=== PATIENT | female | born 1995 | race Caucasian/White ===

== ENCOUNTER 2016-03-12 15:12 | Emergency (ER) | payer OTHER ==
[2016-03-12] MEDS ORDERED: Ondansetron INJ* 2 MG/ML VIAL IV ONE (15:54)
[2016-03-12] MEDS ORDERED: NS 0.9% 1000 ML* 2,000 ML IV ONE (15:54)
[2016-03-12] MEDS ORDERED: Morphine INJ* 4 MG/ML 1 ML CARPUJECT IV ONE (16:11)
[2016-03-12 16:17] LABS: Hematocrit 40 % (35-47); Hemoglobin 13.9 g/dl (12.0-16.0); Mean Corpuscular HGB Conc 35 g/dl (31-36); Mean Corpuscular Hemoglobin 33 pg (27-31); Mean Corpuscular Volume 97 fL (80-97); Mean Platelet Volume 9 um3 (7.4-10.4); Red Blood Count 4.14 10^6/ul (4.0-5.4); Red Cell Distribution Width 12 % (10.5-15); White Blood Count 17.8 10^3/ul (3.5-10.8)
[2016-03-12 16:33] LABS: ALT 11 U/L (7-52); AST 17 U/L (13-39); Albumin 4.8 g/dL (3.2-5.2); Alkaline Phosphatase 50 U/L (34-104); Anion Gap 8 mmol/L (2-11); BUN/Creatinine Ratio 14.9 (8-20); Blood Urea Nitrogen 11 mg/dL (6-24); CO2 Carbon Dioxide 25 mmol/L (22-32); Calcium 9.9 mg/dL (8.6-10.3); Chloride 103 mmol/L (101-111); EGFR African American 125.1 (>60); EGFR Non-African American 97.3 (>60); Globulin 2.8 g/dL (2-4); Glucose 130 mg/dL (70-100); Lipase < 10 U/L (11.0-82.0); Potassium 3.4 mmol/L (3.5-5.0); Sodium 136 mmol/L (133-145); Total Protein 7.6 g/dL (6.4-8.9)
--- NOTE | 2016-03-12 17:33 | RAD ---
Indication: Bilateral flank pain. Real-time sonography of the kidneys was performed. The right kidney measures 10.8 x 5.2 x 5.3 cm with no hydronephrosis. The left kidney measures 12.0 x 5.2 x 5.3 cm with moderate degree of left hydronephrosis. Echogenic foci are noted in the calyces which may represent nonobstructing calculi. There is an echogenic focus which appears to be within the distal left ureter which may represent a 5 mm calculi. Bilateral ureteral jets are noted. IMPRESSION: Moderate degree of left hydronephrosis with echogenic foci in the region of the distal left ureter. Right kidney is unremarkable. Bilateral ureteral jets are noted.
[2016-03-12 18:07] LABS: Urine Bacteria 1+ (Absent); Urine Bilirubin Negative (Negative); Urine Glucose Negative (Negative); Urine Nitrite Negative (Negative)
[2016-03-12] MEDS ORDERED: Ketorolac INJ* 30 MG/ML 1 ML VIAL IV PUSH ONE (18:12)
[2016-03-12] MEDS ORDERED: Sulfamethox/Trimethoprim DS 800/160* TAB PO ONE (18:13)
[2016-03-12] MEDS ORDERED: oxyCODONE/Acetamin 5/325 MG* TAB PO ONE (18:20)
[2016-03-12 19:08] VITALS: BP 100/53
--- NOTE | 2016-03-12 22:47 | ED ---
IRupreto,Charity, scribed for Bryant Barkley MD on 03/12/16 at 1632 . GI/ HPI - HPI Summary HPI Summary: This 21 y/o female presents to ED for acute back pain that radiates to right suprapubic abd since 1 hour ago. Pt is actively n/v at the time of initial evaluation. Mother present at bedside reports subjective fever. Temperature of PMHx includes IBS, PCOS, and kidney stones. Mother present at bedside and pt deny any PSHx, stent, or scope for her kidney stone. Pt states that her LMP was " a few weeks late" but denies any chance of being . - History of Current Complaint Chief Complaint: EDAbdPain Time Seen by Provider: 03/12/16 15:53 Stated Complaint: VOITTING Hx Obtained From: Patient, Family/Rail Grinder - mother present at bedside, Medical Records Onset/Duration: Started Hours Ago, Atraumatic, Still Present Timing: Constant Severity: Moderate Current Severity: Moderate Pain Intensity: 6 Location of Pain: Suprapubic Pain Radiates to: Back Associated Signs and Symptoms: Positive: Back Pain, Nausea, Vomiting, Fever - subjective fever Aggravating Factor(s): Nothing Alleviating Factor(s): Nothing - Allergy/Home Medications Allergies/Adverse Reactions: Allergies Allergy/AdvReac Type Severity Reaction Status Date / Time Cefprozil Allergy Rash Verified 03/12/16 15:16 PMH/Surg Hx/FS Hx/Imm Hx Endocrine/Hematology History: Denies: Hx Diabetes, Hx Thyroid Disease Cardiovascular History: Denies: Hx Hypertension, Hx Peripheral Vascular Disease Respiratory History: Reports: Hx Asthma - as a child, no inhalers at present Denies: Hx Chronic Obstructive Pulmonary Disease (COPD) GI History: Denies: Hx Ulcer Musculoskeletal History: Denies: Hx Arthritis, Hx Rheumatoid Arthritis, Hx Osteoporosis Sensory History: Denies: Hx Cataracts, Hx Contacts or Glasses, Hx Glaucoma Opthamlomology History: Denies: Hx Cataracts, Hx Contacts or Glasses, Hx Glaucoma Neurological History: Denies: Hx Headaches, Hx Seizures, Hx Transient Ischemic Attacks (TIA) Psychiatric History: Denies: Hx Anxiety, Hx Depression - Surgical History Surgery Procedure, Year, and Place: Tonsillectomy middle school age. [place] teeth removal 2009 Infectious Disease History: Denies: Hx Clostridium Difficile, Hx Hepatitis, Hx Human Immunodeficiency Virus (HIV), Hx of Known/Suspected MRSA, Hx Shingles, Hx Tuberculosis, Hx Known/ Suspected VRE, Traveled Outside the [place] in Last 30 Days - Family History Known Family History: Positive: Hypertension - Social History Lives: With Family Alcohol Use: Rare Hx Substance Use: Yes Substance Use Type: Reports: Marijuana Substance Use Comment - Amount & Last Used: Frequently - every day Hx Tobacco Use: No Smoking Status (MU): Never Smoked Tobacco Review of Systems Positive: Fever - subjective fever Negative: Chest Pain Negative: Shortness Of Breath, Cough Positive: Abdominal Pain, Vomiting, Nausea Negative: dysuria Positive: Other - back pain Negative: Rash Neurological: Other - negative for dizziness Negative: Anxious, Depressed All Other Systems Reviewed And Are Negative: Yes Physical Exam - Summary Physical Exam Summary: Constitutional: Well-developed, Well-nourished, Alert. (-) Distressed Skin: Warm, Dry HENT: Normocephalic; Atraumatic Eyes: Conjunctiva normal Neck: Musculoskeletal ROM normal neck. (-) JVD, (-) Stridor, (-) Tracheal deviation Cardio: Rhythm regular, rate normal, Heart sounds normal; Intact distal pulses; The pedal pulses are 2+ and symmetric. Radial pulses are 2+ and symmetric. (-) Murmur Pulmonary/Chest wall: Effort normal. (-) Respiratory distress, (-) Wheezes, (-) Rales Abd: Soft, (-) Tenderness, (-) Distension, (-) Guarding, (-) Rebound, (+) left CVA tenderness. Musculoskeletal: (-) Edema Lymph: (-) Cervical adenopathy Neuro: Alert, Oriented x3 Psych: Mood and affect Normal Triage Information Reviewed: Yes Vital Signs On Initial Exam: Initial Vitals Temp Pulse Resp BP Pulse Ox 97.6 F 80 17 138/69 100 03/12/16 15:14 03/12/16 15:14 03/12/16 15:14 03/12/16 15:14 03/12/16 15:14 Vital Signs Reviewed: Yes Diagnostics - Vital Signs Vital Signs Temp Pulse Resp BP Pulse Ox 03/12/16 15:14 97.6 F 80 17 138/69 100 - Laboratory Lab Results: Lab Results 03/12/16 Range/Units 16:00 WBC 17.8 H (3.5-10.8) 10^3/ul RBC 4.14 (4.0-5.4) 10^6/ul Hgb 13.9 (12.0-16.0) g/dl Hct 40 (35-47) % MCV 97 (80-97) fL MCH 33 H (27-31) pg MCHC 35 (31-36) g/dl RDW 12 (10.5-15) % Plt Count 191 (150-450) 10^3/ul MPV 9 (7.4-10.4) um3 Neut % (Auto) 82.4 (38-83) % Lymph % (Auto) 10.8 L (25-47) % [place] % (Auto) 6.1 (1-9) % Eos % (Auto) 0.5 (0-6) % Baso % (Auto) 0.2 (0-2) % Absolute Neuts (auto) 14.6 H (1.5-7.7) 10^3/ul Absolute Lymphs (auto) 1.9 (1.0-4.8) 10^3/ul Absolute Monos (auto) 1.1 H (0-0.8) 10^3/ul Absolute Eos (auto) 0.1 (0-0.6) 10^3/ul Absolute Basos (auto) 0 (0-0.2) 10^3/ul Absolute Nucleated RBC 0 10^3/ul Nucleated RBC % 0 Result Diagrams: 03/12/16 16:00 03/12/16 16:00 Lab Statement: Any lab studies that have been ordered have been reviewed, and results considered in the medical decision making process. - Additional Comments Diagnostic Additional Comments: US Renal -- Moderate degree of left hydronephrosis with echogenic foci in the region of the distal left ureter. Right kidney is unremarkable. Bilateral ureteral jets are noted. Re-Evaluation - Re-Evaluation First Eval Re-Evaluation Time: 18:20 Change: Improved Comment: Pt's pain resolved after morphine and oxycodone. Due to lack of urologist aeronautics commission director today, Pt will be discharged with plan to follow up with Dr. Stafford/Jet's office tomorrow as an outpatient. GIGU Course/Dx - Course Assessment/Plan: This 21 y/o female presents to ED with chief complaint of acute lower back pain radiating to abd pain since an hour ago. Pt is noted with active n/v at time of initial evaluation. PMHx includes recent kidney stone, PCOS, and IBS. Mother present at bedside denies any PSHx for either of Pt's IBS or kidney stones. Upon examination, Pt is noted with left CVA tendnerness. Blood work indicates elevated WBC of 17.8. Lipase is negative. US Renal indicates left hydronephrosis with echogenic foci in region of left distal ureter. UA indicates 3+ RBC. - Diagnoses Provider Diagnoses: Ureteral stone with hydronephrosis Discharge - Discharge Plan Condition: Stable Disposition: HOME Patient Education Materials: Kidney Stones (ED), Hydronephrosis (ED) Referrals: Akbar Rodrigues MD [Primary Care Provider] - 2 Days Navi Stafford MD [Medical Doctor] - 1 Day The documentation as recorded by the Ruperto greenwood Soohyun accurately reflects the service I personally performed and the decisions made by , Bryant Barkley MD.
== END 2016-03-12 19:07 | disposition home or self-care (01) ==
LOC: ED 15:12
DX: N13.2 Hydronephrosis with renal and ureteral calculous obstruction (principal); Z87.442 Personal history of urinary calculi
CPT/HCPCS: 36415; 76775; 80053; 81003; 81015; 83690; 85025; 87086; 96360; 96374; 96375; 99282; J2270; J2405

== ENCOUNTER 2016-03-13 20:32 | Emergency (ER) | payer OTHER ==
[2016-03-13 21:30] VITALS: BP 121/82
== END 2016-03-13 22:06 | disposition left against medical advice (07) ==
LOC: ED 20:32
DX: R10.84 Generalized abdominal pain (principal); Z53.21 Procedure and treatment not carried out due to patient leaving prior to being seen by health care provider

== ENCOUNTER 2016-03-14 08:13 | Emergency (ER) | payer OTHER ==
[2016-03-14 10:15] VITALS: BP 103/61
== END 2016-03-14 10:25 | disposition left against medical advice (07) ==
LOC: ED 08:13
DX: R10.11 Right upper quadrant pain (principal)
CPT/HCPCS: 99282

== ENCOUNTER 2017-01-30 11:30 | Emergency (ER) | payer OTHER ==
[2017-01-30] MEDS ORDERED: Ondansetron ODT TAB* 4 MG PO ONE (14:50)
[2017-01-30] MEDS ORDERED: Ondansetron INJ* 2 MG/ML VIAL IV ONE (15:38)
[2017-01-30] MEDS ORDERED: NS 0.9% 1000 ML* 1,000 ML IV ONE (15:38)
[2017-01-30 16:15] LABS: Hematocrit 38 % (35-47); Hemoglobin 13.4 g/dl (12.0-16.0); Mean Corpuscular HGB Conc 35 g/dl (31-36); Mean Corpuscular Hemoglobin 34 pg (27-31); Mean Corpuscular Volume 98 fL (80-97); Mean Platelet Volume 8 um3 (7.4-10.4); Red Blood Count 3.92 10^6/ul (4.0-5.4); Red Cell Distribution Width 13 % (10.5-15); White Blood Count 8.8 10^3/ul (3.5-10.8)
[2017-01-30 16:30] LABS: Albumin 4.7 g/dL (3.2-5.2); Calcium 9.9 mg/dL (8.6-10.3); EGFR African American 159.3 (>60); EGFR Non-African American 123.9 (>60); Potassium 3.5 mmol/L (3.5-5.0); Total Bilirubin 0.4 mg/dL (0.2-1.0); Total Protein 7.7 g/dL (6.4-8.9)
[2017-01-30 17:00] LABS: Urine Bilirubin Negative (Negative); Urine Glucose Negative (Negative); Urine Nitrite Negative (Negative)
[2017-01-30 18:07] VITALS: BP 105/63
--- NOTE | 2017-01-30 19:23 | ED ---
Enid Burch Julia, scribed for Aj Schmitz MD on 01/30/17 at 1701 . Complex/Multi-Sys Presentation - HPI Summary HPI Summary: Patient is a 21 year old female presenting to [facility] with a chief complaint of N/ V for the past 10 days. Patient states she cant keep anything down. Patient is roughly 7 weeks . She has not seen an OGBYN, but has an appointment in February. Patient reports the pain is alleviated by nothing and aggravated by stress. Patient reports lightheadedness, infrequent urination, loss of appetite , increased stress, and uterine pain that has worsened over time. Patient denies vaginal bleeding. Patients reproductive history is A0. - History Of Current Complaint Chief Complaint: EDNauseaVomitDiarrh Time Seen by Provider: 01/30/17 15:29 Hx Obtained From: Patient Onset/Duration: Lasting Weeks - 10 days Aggravating Factor(s): Stress Alleviating Factor(s): nothing Associated Signs And Symptoms: Positive: Other - lightheadedness, infrequent urination, loss of appetite, increased stress, and uterine pain that has worsened over time. Patient denies vaginal bleeding. - Allergies/Home Medications Allergies/Adverse Reactions: Allergies Allergy/AdvReac Type Severity Reaction Status Date / Time Acetaminophen [From Percocet] Allergy Nausea And Verified 03/14/16 08:25 Vomiting Cefprozil Allergy Rash Verified 03/14/16 08:24 Oxycodone [From Percocet] Allergy Nausea And Verified 03/14/16 08:25 Vomiting PMH/Surg Hx/FS Hx/Imm Hx Endocrine/Hematology History: Denies: Hx Diabetes, Hx Thyroid Disease Cardiovascular History: Denies: Hx Hypertension, Hx Peripheral Vascular Disease Respiratory History: Reports: Hx Asthma - as a child, no inhalers at present Denies: Hx Chronic Obstructive Pulmonary Disease (COPD) GI History: Denies: Hx Ulcer History: Reports: Hx Kidney Stones Musculoskeletal History: Denies: Hx Arthritis, Hx Rheumatoid Arthritis, Hx Osteoporosis Sensory History: Denies: Hx Cataracts, Hx Contacts or Glasses, Hx Glaucoma Opthamlomology History: Denies: Hx Cataracts, Hx Contacts or Glasses, Hx Glaucoma Neurological History: Denies: Hx Headaches, Hx Seizures, Hx Transient Ischemic Attacks (TIA) Psychiatric History: Denies: Hx Anxiety, Hx Depression - Surgical History Surgery Procedure, Year, and Place: Tonsillectomy middle school age. [place] teeth removal 2009 Infectious Disease History: No Infectious Disease History: Denies: Hx Clostridium Difficile, Hx Hepatitis, Hx Human Immunodeficiency Virus (HIV), Hx of Known/Suspected MRSA, Hx Shingles, Hx Tuberculosis, Hx Known/ Suspected VRE, Traveled Outside the [place] in Last 30 Days - Family History Known Family History: Positive: Unknown - Patient is adopted. - Social History Alcohol Use: None Hx Substance Use: Yes Substance Use Type: Reports: Marijuana Substance Use Comment - Amount & Last Used: hx of use Hx Tobacco Use: No Smoking Status (MU): Never Smoked Tobacco Review of Systems Positive: Other - lightheaded. Negative: Fever Positive: Vomiting, Nausea, Other - loss of appetite Positive: frequency - decreased, pain - uterine Positive: Other - stressed All Other Systems Reviewed And Are Negative: Yes Physical Exam - Summary Physical Exam Summary: Appearance: The patient is well-nourished in no acute distress and in no acute pain. Skin: The skin is warm and dry and skin color reflects adequate perfusion. HEENT: The head is normocephalic and atraumatic. The pupils are equal and reactive. The conjunctivae are clear and without drainage. Nares are patent and without drainage. Mouth reveals moist mucous membranes and the throat is without erythema and exudate. The external ears are intact. The ear canals are patent and without drainage. The tympanic membranes are intact. Neck: the neck is supple with full range of motion and non-tender. There are no carotid bruits. There is no neck vein distension. Respiratory: Chest is non-tender. Lungs are clear to auscultation and breath sounds are symmetrical and equal. Cardiovascular: Heart is regular rate and rhythm. There is no murmur or rub auscultated. There is no peripheral edema and pulses are symmetrical and equal. Abdomen: The abdomen is soft and non-tender. There are normal bowel sounds heard in all four quadrants and there is no organomegaly palpated. Musculoskeletal: There is no back tenderness noted. Extremities are non-tender with full range of motion. There is good capillary refill. There is no peripheral edema or calf tenderness elicited. Neurological: Patient is alert and oriented to person, place and time. The patient has symmetrical motor strength in all four extremities. Cranial nerves are grossly intact. Deep tendon reflexes are symmetrical and equal in all four extremities. Psychiatric: The patient has an appropriate affect and does not exhibit any anxiety or depression. Triage Information Reviewed: Yes Vital Signs On Initial Exam: Initial Vitals Temp Pulse Resp BP Pulse Ox 97.9 F 64 18 109/73 100 01/30/17 12:03 01/30/17 12:03 01/30/17 12:03 01/30/17 12:03 01/30/17 12:03 Vital Signs Reviewed: Yes - [place] Coma Scale Coma Scale Total: 15 Diagnostics - Vital Signs Vital Signs Temp Pulse Resp BP Pulse Ox 01/30/17 16:32 79 98 01/30/17 16:31 122/63 01/30/17 12:03 97.9 F 64 18 109/73 100 - Laboratory Lab Results: Lab Results 01/30/17 01/30/17 Range/Units 15:59 15:59 WBC 8.8 (3.5-10.8) 10^3/ul RBC 3.92 L (4.0-5.4) 10^6/ul Hgb 13.4 (12.0-16.0) g/dl Hct 38 (35-47) % MCV 98 H (80-97) fL MCH 34 H (27-31) pg MCHC 35 (31-36) g/dl RDW 13 (10.5-15) % Plt Count 202 (150-450) 10^3/ul MPV 8 (7.4-10.4) um3 Sodium 135 (133-145) mmol/L Potassium 3.5 (3.5-5.0) mmol/L Chloride 101 (101-111) mmol/L Carbon Dioxide 27 (22-32) mmol/L Anion Gap 7 (2-11) mmol/L BUN 9 (6-24) mg/dL Creatinine 0.60 (0.51-0.95) mg/dL Est GFR ( Amer) 159.3 (>60) Est GFR (Non-Af Amer) 123.9 (>60) BUN/Creatinine Ratio 15.0 (8-20) Glucose 81 (70-100) mg/dL Calcium 9.9 (8.6-10.3) mg/dL Total Bilirubin 0.40 (0.2-1.0) mg/dL AST 14 (13-39) U/L ALT 9 (7-52) U/L Alkaline Phosphatase 50 (34-104) U/L Total Protein 7.7 (6.4-8.9) g/dL Albumin 4.7 (3.2-5.2) g/dL Globulin 3.0 (2-4) g/dL Albumin/Globulin Ratio 1.6 (1-3) Result Diagrams: 01/30/17 15:59 01/30/17 15:59 Lab Statement: Any lab studies that have been ordered have been reviewed, and results considered in the medical decision making process. Complex Multi-Symp Course/Dx Course Of Treatment: Ms. Maggie Miramontes is early in her first and has been vomiting and not keeping anything down. She called he OB whom she has not seen yet and was given Reglan but isn't keeping it down either. Her labs here were normal and she felt better after fluids and zofran. I gave her wome education about dietary and environmental steps she could take and a prescription for Deglas. - Diagnoses Provider Diagnoses: Nausea and vomiting during Discharge - Discharge Plan Condition: Stable Disposition: HOME Prescriptions: Doxylamine/Pyridoxine(NF) [Diclegis (NF)] 1 tab PO BEDTIME #10 tab Patient Education Materials: Nausea and Vomiting in (ED) Referrals: Miguel Tripathi MD [Primary Care Provider] - 3 Days Additional Instructions: RETURN TO THE EMERGENCY DEPT FOR ANY CHANGING OR WORSENING SYMPTOMS. The documentation as recorded by the Enid greenwood Julia accurately reflects the service I personally performed and the decisions made by me, Aj Schmitz MD.
== END 2017-01-30 18:06 | disposition home or self-care (01) ==
LOC: ED 11:30
DX: O21.0 Mild hyperemesis gravidarum (principal); Z3A.01 Less than 8 weeks gestation of pregnancy; J45.909 Unspecified asthma, uncomplicated; Z87.442 Personal history of urinary calculi; Z88.6 Allergy status to analgesic agent; Z88.1 Allergy status to other antibiotic agents; Z88.5 Allergy status to narcotic agent
CPT/HCPCS: 36415; 80053; 81003; 85027; 96361; 96374; 99282; J2405

== ENCOUNTER → 2017-07-25 14:28 | Emergency (ER) | payer OTHER ==
[2017-07-25 16:05] VITALS: BP 129/87
--- NOTE | 2017-07-25 19:19 | ED ---
Ronaldo Burch Tenzin, scribed for Chong Yoon MD on 07/25/17 at 1554 . - HPI Summary HPI Summary: Pt is a 22 years old female 33 weeks long presenting to the ED complaining of lower abdominal pain radiating to all around lower back that started since this morning. She reports that she had ten episodes of pain today. She is also complaining of increased vaginal discharge with thicker texture. She denies fever, chills, dysuria or SOB. No aggravating or alleviating factors were noted. GOP1 - History of Current Complaint Chief Complaint: EDOBProblems Stated Complaint: BACK/ABD PAIN/33 WKS PREG Time Seen by Provider: 07/25/17 15:34 Hx Obtained From: Patient Current Severity: Mild Pain Intensity: 5 Location of Pain: Suprapubic Associated Signs and Symptoms: Positive: Back Pain, Vaginal Bleeding or Discharge - Increased vaginal discharge.. Negative: Fever - Assessment Hx Now: No Hx Hysterectomy: No - Allergies/Home Medications Allergies/Adverse Reactions: Allergies Allergy/AdvReac Type Severity Reaction Status Date / Time acetaminophen [From Percocet] Allergy Nausea And Verified 07/25/17 15:36 Vomiting cefprozil Allergy Rash Verified 07/25/17 15:36 oxycodone [From Percocet] Allergy Nausea And Verified 07/25/17 15:36 Vomiting PMH/Surg Hx/FS Hx/Imm Hx Endocrine/Hematology History: Denies: Hx Diabetes, Hx Thyroid Disease Cardiovascular History: Denies: Hx Hypertension, Hx Peripheral Vascular Disease Respiratory History: Reports: Hx Asthma - as a child, no inhalers at present Denies: Hx Chronic Obstructive Pulmonary Disease (COPD) GI History: Denies: Hx Ulcer History: Reports: Hx Kidney Stones Musculoskeletal History: Denies: Hx Arthritis, Hx Rheumatoid Arthritis, Hx Osteoporosis Sensory History: Denies: Hx Cataracts, Hx Contacts or Glasses, Hx Glaucoma Opthamlomology History: Denies: Hx Cataracts, Hx Contacts or Glasses, Hx Glaucoma Neurological History: Denies: Hx Headaches, Hx Seizures, Hx Transient Ischemic Attacks (TIA) Psychiatric History: Denies: Hx Anxiety, Hx Depression - Surgical History Surgery Procedure, Year, and Place: Tonsillectomy middle school age. [place] teeth removal 2009 Infectious Disease History: No Infectious Disease History: Denies: Hx Clostridium Difficile, Hx Hepatitis, Hx Human Immunodeficiency Virus (HIV), Hx of Known/Suspected MRSA, Hx Shingles, Hx Tuberculosis, Hx Known/ Suspected VRE, Traveled Outside the US in Last 30 Days - Family History Known Family History: Positive: Unknown - Patient is adopted., Hypertension - Social History Alcohol Use: None Hx Substance Use: Yes Substance Use Type: Reports: Marijuana Substance Use Comment - Amount & Last Used: hx of use Hx Tobacco Use: No Smoking Status (MU): Never Smoked Tobacco Review of Systems Negative: Fever, Chills Negative: Shortness Of Breath Positive: Abdominal Pain - suprapubic radiating to her back. Negative: dysuria All Other Systems Reviewed And Are Negative: Yes Physical Exam - Summary Physical Exam Summary: General: well-appearing, no pain distress Skin: warm, color reflects adequate perfusion, dry Head: normal Eyes: EOMI, DREW ENT: normal Neck: supple, nontender Respiratory: CTA, breath sounds present Cardiovascular: RRR Abdomen: soft, nontender Bowel: present Musculoskeletal: normal, strength/ROM intact Neurological: sensory/motor intact, A&O x3 Psychological: affect/mood appropriate GOP1 : 33 weeks long . - Physical Exam Triage Information Reviewed: Yes Vital Signs Reviewed: Yes Diagnostics - Vital Signs Vital Signs Temp Pulse Resp BP Pulse Ox 07/25/17 14:31 98.7 F 68 15 127/83 100 - Laboratory Lab Statement: Any lab studies that have been ordered have been reviewed, and results considered in the medical decision making process. Course/Dx - Course Course Of Treatment: DISCUSSED WITH DR SUTHERLAND, OB. PATIENT ACCEPTED AT [facility] - Diagnoses Provider Diagnoses: Abdominal pain during in third trimester - Provider Notifications Discussed Care Of Patient With: Jaky Sutherland Time Discussed With Above Provider: 15:50 - Pt will be admitted. Discharge - Sign-Out/Discharge Documenting (check all that apply): Discharge/Admit/Transfer - Discharge Plan Condition: Stable Disposition: ADMITTED TO [facility] Referrals: Miguel Tripathi MD [Primary Care Provider] - - Billing Disposition and Condition Condition: STABLE Disposition: Admitted to [facility] The documentation as recorded by the Ronaldo greenwood Tenzin accurately reflects the service I personally performed and the decisions made by me, Chong Yoon MD.
== END | disposition short-term general hospital (02) ==
LOC: ED 14:28
DX: O26.893 Other specified pregnancy related conditions, third trimester (principal); O46.93 Antepartum hemorrhage, unspecified, third trimester; Z3A.33 33 weeks gestation of pregnancy; R10.9 Unspecified abdominal pain; M54.9 Dorsalgia, unspecified
CPT/HCPCS: 99284

== ENCOUNTER 2017-09-13 09:26 | Inpatient (IN) | payer OTHER ==
[2017-09-13] MEDS ORDERED: PROCHLORPERAZINE INJ 5 MG/ML 2 ML VIAL IV PRN (10:26)
[2017-09-13] MEDS ORDERED: OBEPIDURAL* 250 ML EPIDURAL ONE (11:04)
[2017-09-13 11:05] LABS: Hematocrit 43 % (35-47); Hemoglobin 14.9 g/dl (12.0-16.0); Mean Corpuscular HGB Conc 35 g/dl (31-36); Mean Corpuscular Hemoglobin 34 pg (27-31); Mean Corpuscular Volume 99 fL (80-97); Mean Platelet Volume 11.3 um3 (7.4-10.4); Platelet Count 133 10^3/ul (150-450); Red Blood Count 4.37 10^6/ul (4.00-5.40); Red Cell Distribution Width 13 % (10.5-15)
--- NOTE | 2017-09-13 11:12 | HP ---
General Information - General Information Maternal Age: 22 Grav: 1 Para: 0 SAB: 0 IEA: 0 Estimated Due Date: 09/11/17 Determined By: LMP Maternal Blood Type and Rh: A Positive - Results this Serology/RPR Result: Non-Reactive Rubella Result: Immune HBsAg Result: Negative HIV Result: Negative GBS Culture Result: Negative Past Medical History Pertinent Past Medical History: See Records Past Medical History Comment: Depression, stopped meds with Smokes marijuana regularly Past Surgical History Comment: Tonsillectomy [place] Tooth Extraction - Antepartal Records Antepartal Records: Reviewed, Uncomplicated Review of Systems Constitutional: Uncomfortable CV Complaint: No Respiratory: Shortness of Breath: No Gastrointestinal: Vomiting Genitourinary: Leaking Fluid Musculoskeletal: Contractions Neurological: No Headache, No Visual Changes Movement: Normal Exam Allergies/Adverse Reactions: Allergies cefprozil Allergy (Verified 09/13/17 10:54) Rash acetaminophen [From Percocet] Adverse Reaction (Verified 09/13/17 10:54) Nausea And Vomiting oxycodone [From Percocet] Adverse Reaction (Verified 09/13/17 10:54) Nausea And Vomiting Lab Values - Entire Visit: Laboratory Tests 09/13/17 10:40 WBC 11.0 H RBC 4.37 Hgb 14.9 Hct 43 MCV 99 H MCH 34 H MCHC 35 RDW 13 Plt Count 133 L MPV 11.3 H - Measurements Height: 5 ft 6.5 in Weight: 172 lb Weight in lbs: [phone] Body Mass Index (BMI): 27.3 Pre- Weight: 138 lb Weight Gained This : 34 lbs and 0 ozs - Exam Breast: - - soft, no masses Extremities: No Edema Heart: Normal Rhythm/Heart Sounds HEENT: No Significant Findings Lungs: Clear Bilaterally Thyroid: No Thyromegaly - Ultrasound/Biophysical Profile Ultrasound Status: Not Done Targeted Exam Findings Estimated Weight: 7 lbs Cervical Exam: 2cm Effacement: 90% Station: -1 Presenting Part: Vertex Membrane Status: Leaking Amniotic Fluid Evaluation: Clear EFM Findings - External Monitor Findings Baseline Heart Rate: 130 External Monitor Findings: Accelerations Present, No Pattern of Variable or Late Decelerations, Variability Moderate, Baseline Stable External Monitor Findings Comment: category 1 Contractions: Regular, Moderate, 45-90 Seconds Contraction Frequency: every 3-5 min Assessment/Plan - Assessment Primip at 40 wks 2 days with SROM, early labor - Plan Plan: Admit - Anticipate Vaginal Delivery - Date/Time of Admission Date of Admission: 09/13/17 Time of Admission: 09:50
[2017-09-13] MEDS ORDERED: fentaNYL* 50 MCG/ML 2 ML VIAL (100 MCG VIAL) ONE (11:13)
--- NOTE | 2017-09-13 11:14 | PN ---
Progress Note - Progress Note Date of Service: 09/13/17 Note: Now much more uncomfortable, contractions strong, every 2-3 min. Wants epidural Cervix: 3-4 cm/100%/ vtx -[address] Quarles to do epidural
[2017-09-13 11:35] LABS: ABS Basophils 0.1 10^3/ul (0-0.2); ABS Eosinophils 0.1 10^3/ul (0-0.6); ABS Monocytes 1.2 10^3/ul (0-0.8); ABS Neutrophils 7.6 10^3/ul (1.5-7.7); ABS Nucleated RBC 0 10^3/ul; Eosinophil % 0.9 % (0-6); Lymphocyte % 18.6 % (25-47); Nucleated Red Blood Cells % 0.2
[2017-09-13] MEDS ORDERED: Sodium Citrate/Citric Acid* 15 ML UDC PO PRN (11:51)
[2017-09-13] MEDS ORDERED: Phenylephrine IV* 40 MCG/ML 10 ML SYRINGE IV PUSH PRN ×2 (11:51)
[2017-09-13] MEDS ORDERED: Famotidine TAB* 20 MG PO PRN (11:51)
[2017-09-13] MEDS ORDERED: OBEPIDURAL* 250 ML EPIDURAL SCH (12:00)
--- NOTE | 2017-09-13 15:13 | PN ---
Progress Note - Progress Note Date of Service: 09/13/17 Note: Comfortable after epidural FHT, BP stable Cervix: 8-9. vtx -1 Will await full dilation, baby to labor down
[2017-09-13] MEDS ORDERED: Oxytocin in LR* 20 UNITS/1,000 ML BAG IVPB ONE (17:10)
[2017-09-13] MEDS ORDERED: Oxytocin in LR* 20 UNITS/1,000 ML BAG IVPB SCH ×2 (17:30→19:00)
[2017-09-13] MEDS ORDERED: Acetaminophen TAB* 325 MG PO PRN (18:34)
[2017-09-13] MEDS ORDERED: Glycerin ADULT SUPP PR PRN (18:34)
[2017-09-13] MEDS ORDERED: Dibucaine 1% 28.35 GM TUBE PR PRN (18:34)
[2017-09-13] MEDS ORDERED: Ibuprofen TAB* 600 MG PO PRN (18:34)
[2017-09-13] MEDS ORDERED: Witch Hazel PAD* JAR TOPICAL PRN (18:34)
--- NOTE | 2017-09-13 18:42 | PROCNOTE ---
[facility] OB: Delivery Note - Nursery Level of Nursery: Regular/Bedside - Perineum Perineal Injury: Vaginal Laceration Perineal Injury Comment: 1 stitch repair with 3-0 ccg, no local Perineal Repair: By Delivering Practioner - Additional Delivery Notes Additional Delivery Notes: SVB LMC, OA, over small vaginal laceration. Infant pink with stimulation. Placenta Ajay. FF, IV with pitocin running. Laceration with 1 stitch repair, no local. EBL 100cc. Infant with Apgars 9/9.
[2017-09-13] MEDS: Docusate CAP* 100 MG PO SCH (23:59)
[2017-09-14 07:02] LABS: Hematocrit 36 % (35-47); Hemoglobin 12.4 g/dl (12.0-16.0); Mean Corpuscular HGB Conc 35 g/dl (31-36); Mean Corpuscular Hemoglobin 34 pg (27-31); Mean Corpuscular Volume 98 fL (80-97); Mean Platelet Volume 10.5 um3 (7.4-10.4); Platelet Count 109 10^3/ul (150-450); Red Blood Count 3.62 10^6/ul (4.00-5.40); Red Cell Distribution Width 13 % (10.5-15)
[2017-09-14] MEDS: Docusate CAP* 100 MG PO SCH ×2 (07:27→14:31)
[2017-09-14 20:02] VITALS: BP 123/69
[2017-09-15] MEDS: Docusate CAP* 100 MG PO SCH ×2 (01:11→09:32)
[2017-09-15] MEDS: Ferrous Gluconate TAB* 324 MG TAB PO SCH ×2 (01:11→01:12)
== END 2017-09-15 10:19 | disposition home or self-care (01) | DRG 560 ==
LOC: MCHOBOUT 09:26 → MCHOB 09:57
PROVIDERS: ADMIT Midwife; ATTEND Midwife
PROC: 10E0XZZ Delivery of Products of Conception, External Approach (ICD-10-PCS; principal; 2017-09-13)
PROC: 0HQ9XZZ Repair Perineum Skin, External Approach (ICD-10-PCS; 2017-09-13)
DX: O48.0 Post-term pregnancy (principal); O71.4 Obstetric high vaginal laceration alone; O99.324 Drug use complicating childbirth; F32.9 Major depressive disorder, single episode, unspecified; O99.344 Other mental disorders complicating childbirth; F14.90 Cocaine use, unspecified, uncomplicated; Z3A.40 40 weeks gestation of pregnancy; Z37.0 Single live birth
CPT/HCPCS: 36415; 80307; 85025; 85027; 86850; 86900; 86901; 87086; A9270-GY; J0780; J3010

== ENCOUNTER 2018-02-10 14:55 | Emergency (ER) | payer OTHER ==
--- OUTSIDE RECORDS SUMMARY | 2018-02-10 15:00 | XMS REPORT | Continuity of Care Document ---
:1995 External Reference #:[id number] Author Name Kathy Anthony MD Address [address] [place] [address] Care Team Providers Name Role Phone Vanessa Estes MD Primary Care Physician Unavailable Payers Type Date Identification Numbers Payment Provider Subscriber Policy Number: [id number] [facility] Gena Tapia PayID: [id number] [address] [address] [place] [address] Advance Directives Description No Information Available Problems Description No Active Problems Family History Date Family Member(s) Problem(s) Comments First Son A&W Social History Type Date Description Comments Sex Unknown Education Highest level completed, Associates Degree Marital Status Single Lives With Boyfriend Lives With Son Diet Healthy, Well Balanced Pets 1 cat Occupation Day Care Provider [employer] Tobacco Use Start: Unknown Never Smoked Cigarettes ETOH Use Denies alcohol use Recreational Drug Use Uses marijuana daily Tobacco Use Start: Unknown Patient has never smoked Smoking Status Reviewed: 01/22/18 Patient has never smoked Exercise Type/Frequency Exercises sporadically Seat Belt/Car Seat Always uses seat belt Currently Active Patient is currently sexually active Contraceptive Methods Current methods include levonorgestrel IUD STD's No STD History Allergies, Adverse Reactions, Alerts Date Description Reaction Status Severity Comments 02/14/2017 Cephalexin Active 10/16/2013 NKDA Inactive Medications Medication Date Status Form Strength Qnty SIG Indications Ordering Provider No Active 01/22/ Active Unknown Medications 2018 Promethazine 02/07/ Hx Tablets 25mg 30tabs take one Laura HCL 2017 - tablet by Michele, 10/23/ mouth CNM 2018 every 6 hours as needed for nausea Diclegis 12/19/ Hx Tablets DR 10-10mg 60tabs 2 pills by Laura 2017 - mouth at [facility], 02/07/ bedtime CNM 2017 can add 1 by mouth in in the morning and at noon if nausea not better. Reglan 01/26/ Hx Tablets 10mg 30tabs Take one Chayito 2017 - tablet by Era, 01/30/ mouth q 8 LM 2017 hours. Tri-Sprintec 11/10/ Hx Tablets 0.18/0.215 84tabs 1 by mouth Jaky 2014 - /0.25 every day Koko, 06/30/ mg-35 mcg 2015 Ponstel 11/18/ Hx Capsules 250mg 30caps take 1 by Ayaan Franco 2013 - mouth q6 Mehran, 11/02/ hours as Oma 2014 needed cramping Tramadol HCL 00/00/ Hx Unknown 0000 - 2013 Concerta /00/ Hx Unknown - 2014 Ritalin /00/ Hx Unknown 2014 Vicodin /00/ Hx Unknown - 2014 Zofran /00/ Hx Unknown - 2014 Lamotrigine / Hx Tablets 150mg 1 po qd Unknown - 2017 Nexplanon / Hx Implant 68mg Unknown - 2014 Tramadol HCL 00/ Hx Tablets 50mg 1 by mouth Unknown 0000 - every 6 03/ hours as 2018 needed PNV-Dha 00/ Hx Capsules 27-0.6-0.4 1 by mouth Unknown 0000 - -300mg every day 2017 Medications Administered in Office Medication Date Status Form Strength Qnty SIG Indications Ordering Provider PT SCRN Tbco Administered Injection Phaelon Id as Non User 018 MD Gabrielle Immunizations CPT Code Status Date Vaccine Lot # [id number] Given 12/17/2017 Influenza Vaccine Quadrivalent Preser/Antibiotic [id number] Free Im Use [id number] Given 06/19/2017 Tetnus, Diptheria Toxoids And Acellular Pertussis, [id number] PT > 7Yrs Old Vital Signs Date Vital Result Comment 01/22/2018 9:06am BP Systolic 120 mmHg BP Diastolic 68 mmHg Height 66.5 inches 5'6.50" Weight 128.00 lb BMI (Body Mass Index) 20.3 kg/m2 1 Parity 1 12/17/2017 3:16pm BP Systolic 102 mmHg BP Diastolic 68 mmHg Height 66.5 inches 5'6.50" Weight 132.00 lb BMI (Body Mass Index) 21.0 kg/m2 1 Parity 1 10/23/2017 2:36pm BP Systolic 112 mmHg BP Diastolic 66 mmHg Height 66.5 inches 5'6.50" Weight 139.00 lb BMI (Body Mass Index) 22.1 kg/m2 Last Menstrual Period [id number] 1 Parity 1 02/14/2017 9:04am BP Systolic 108 mmHg BP Diastolic 70 mmHg Height 66.5 inches 5'6.50" Weight 133.00 lb BMI (Body Mass Index) 21.1 kg/m2 Last Menstrual Period [id number] 1 Parity 0 08/28/2016 1:54pm BP Systolic 132 mmHg BP Diastolic 70 mmHg Height 66.5 inches 5'6.50" Weight 138.00 lb BMI (Body Mass Index) 21.9 kg/m2 Last Menstrual Period [id number] 0 07/12/2016 11:27am BP Systolic 130 mmHg BP Diastolic 78 mmHg Height 66.5 inches 5'6.50" Weight 138.00 lb BMI (Body Mass Index) 21.9 kg/m2 Last Menstrual Period [id number] 0 07/01/2015 9:41am BP Systolic 106 mmHg BP Diastolic 62 mmHg Height 66.50 inches 5'6.50" Weight 126.00 lb BMI (Body Mass Index) 20.0 kg/m2 Last Menstrual Period [id number] 0 Parity 0 11/10/2014 9:09am BP Systolic 106 mmHg BP Diastolic 58 mmHg Height 66.50 inches 5'6.50" Weight 118.00 lb BMI (Body Mass Index) 18.8 kg/m2 0 Parity 0 11/03/2014 9:59am BP Systolic 90 mmHg BP Diastolic 64 mmHg Height 66.50 inches 5'6.50" Weight 119.00 lb BMI (Body Mass Index) 18.9 kg/m2 Last Menstrual Period [id number] 0 Parity 0 12/17/2013 9:04am BP Systolic 106 mmHg BP Diastolic 70 mmHg Height 66.5 inches 5'6.50" Weight 144.00 lb BMI (Body Mass Index) 22.9 kg/m2 Last Menstrual Period [id number] 11/18/2013 8:23am BP Systolic 102 mmHg BP Diastolic 64 mmHg Height 66.5 inches 5'6.50" Weight 148.00 lb BMI (Body Mass Index) 23.5 kg/m2 Last Menstrual Period [id number] 0 10/24/2013 10:22am BP Systolic 112 mmHg BP Diastolic 76 mmHg Height 66.5 inches 5'6.50" Weight 150.00 lb BMI (Body Mass Index) 23.8 kg/m2 Last Menstrual Period [id number] 0 10/16/2013 11:05am BP Systolic 112 mmHg BP Diastolic 70 mmHg Height 66.5 inches 5'6.50" Weight 149.00 lb BMI (Body Mass Index) 23.7 kg/m2 Last Menstrual Period [id number] 0 Results Test Date Facility Test Result H/L Range Note Urine Culture And 09/24/2017 [facility] Urine Culture SEE RESULT 1 [place] [address] BELOW [phone] Laboratory test 08/13/2017 [facility] Genital For SEE RESULT 2 [place] [address] GRP B Strep BELOW [phone] Only Urinalysis Profile 07/30/2017 [facility] [place] [address] [phone] Urine Appearance Cloudy Urine Specific [place] 1.012 N 1.010-1.030 Urine pH 7.0 N 5-9 Urine Urobilinogen Negative Negative Urine Ketones Negative Negative Urine Protein Negative Negative Urine Leukocytes 1+ Abnormal Negative Urine Blood 2+ Abnormal Negative Urine Nitrite Negative Negative Urine Bilirubin Negative Negative Urine Glucose Negative Negative Urine White Blood Cell 2+(11-20/hpf) Abnormal Absent Urine Red Blood Cell 2+(6-10/hpf) Abnormal Absent Urine Bacteria Absent Absent Urine Squamous Epithelial Cell Present Abnormal Absent Urine Culture And 07/30/2017 [facility] Urine Culture SEE RESULT 3 [place] [address] BELOW [phone] Urinalysis Profile 07/25/2017 [facility] [place] [address] [phone] Urine Appearance Cloudy Urine Specific [place] 1.017 N 1.010-1.030 Urine pH 7.0 N 5-9 Urine Urobilinogen Negative Negative Urine Ketones Trace Abnormal Negative Urine Protein Negative Negative Urine Leukocytes Negative Negative Urine Blood Negative Negative * * Abnormal Negative 4 Urine Nitrite Negative Negative Urine Bilirubin Negative Negative Urine Glucose Negative Negative Laboratory test 06/19/2017 [facility] Glucose 1 HR 89 mg/dL N 70-160 5 [place] [address] Post Prandial [phone] CBC With No Diff 06/19/2017 [facility] White Blood 13.6 High 3.5-10.8 [place] [address] Count 10^3/uL [phone] Red Blood Count 3.72 10^6/uL Low 4.0-5.4 Hemoglobin 12.8 g/dL N 12.0-16.0 Hematocrit 38 % N 35-47 Mean Corpuscular Volume 101 fL High 80-97 Mean Corpuscular Hemoglobin 34 pg High 27-31 Mean Corpuscular HGB Conc 34 g/dL N 31-36 Red Cell Distribution Width 13 % N 10.5-15 Platelet Count 168 10^3/uL N 150-450 Mean Platelet Volume 9.8 um3 N 7.4-10.4 Hemoglobin 06/19/2017 [facility] Hemoglobin A2 2.5 % 2.0-3.3 [place] [address] [phone] Hemoglobin F 0.0 % 0.0-0.9 6 Hemoglobin A 97.5 % 95.8-98.0 Variant Hemoglobin 0.0 % 7 Hemoglobin Electro Interp See Comment 8 Sequential Integreated SCRN 2 WA 04/04/2017 [facility] Interpretation SEE BELOW 9 Risk For Ontd <1:5000 Age Risk Down Syndrome 1:1100 [facility] Down Syndrome Risk <1:5000 <1:270 [facility] Trisomy 18 Risk <1:5000 <1:100 Calculated Gestational Age 16.9 10 Afp,Serum 31.5 ng/mL Afp Mom 0.70 11 HCG,Serum 9.2 IU/mL HCG Mom 0.25 Estriol,Free 1.26 ng/mL Estriol Mom 1.28 Inhibin A,Dimeric 188 pg/mL Inhibin A Mom 1.09 Chato-A 516.7 ng/mL 12 Chato-A Mom 0.82 NT Mom 0.83 13 Referring Physician Name TRICEBER Referring Physician Phone NOT GIVEN Referring Physician Npi NOT GIVEN Specimen # From Part 1 [id number] Date Of 1995 Collection Date 04/04/2017 Maternal Weight 133 lbs Est'd Date Of Delivery 09/12/2017 Nuchal Translucency 1.1 mm [place] Rump Length 56 mm Ultrasound Date 03/01/2017 Nasal Bone NOT GIVEN Mother's Ethnic Origin 14 Insulin Depend Diabetic NO Repeat Specimen NO Number Of Fetuses 1 HX Of Neural Tube Defects NO Cigarette Smoker NOT GIVEN Twin B Nasal Bone NG 15 GC/Chlamydia Dna 03/15/2017 [facility] Chlamydia Negative [place] [address] trachomatis Rna [phone] Neisseria gonorrhoeae (GC) Rna Negative Negative Urine Drug 03/15/2017 [facility] Urine Amphetamine Negative ng/ mL 16 Comp 20 [place] [address] [phone] Urine Barbiturates Negative ng/mL 17 Urine Benzodiazepines Negative ng/mL 18 Urine Cocaine Negative ng/mL 19 Urine Phencyclidine Negative ng/mL Cutoff: 25 Urine Tetrahydrocannabinol Presumptive Posi <SEE NOTE> ng/mL Cutoff: 50 20 Creatinine, Urine 122.3 mg/dL Specific [place] 1.012 pH 7.3 Oxidants Negative 21 Adulterants Comment Normal Codeine, Ur Not Detected ng/mL Cutoff: 25 22 Ztgtjhg-0-njil-glucuronide, Ur Not Detected ng/mL 23 Morphine, Ur Not Detected ng/mL Cutoff: 25 24 Djtmvher-4-xaez-glucuronide, U Not Detected ng/mL 25 6-monoacetylmorphine, Ur Not Detected ng/mL Cutoff: 25 26 Hydrocodone, Ur Not Detected ng/mL Cutoff: 25 27 Norhydrocodone, Ur Not Detected ng/mL Cutoff: 25 28 Dihydrocodeine, Ur Not Detected ng/mL Cutoff: 25 29 Hydromorphone, Ur Not Detected ng/mL Cutoff: 25 30 Hdbenleggrldw4ngckhbtzaulwunn Not Detected ng/mL 31 Oxycodone, Ur Not Detected ng/mL Cutoff: 25 32 Noroxycodone, Ur Not Detected ng/mL Cutoff: 25 33 Oxymorphone, Ur Not Detected ng/mL Cutoff: 25 34 Gehhxjibfqg-2-bvdc-glucuronide Not Detected ng/mL 35 Noroxymorphone, Ur Not Detected ng/mL Cutoff: 25 36 Fentanyl, Ur Not Detected ng/mL Cutoff: 2 37 Norfentanyl, Ur Not Detected ng/mL Cutoff: 2 38 Meperidine, Ur Not Detected ng/mL Cutoff: 25 39 Normeperidine, Ur Not Detected ng/mL Cutoff: 25 40 Naloxone, Ur Not Detected ng/mL Cutoff: 25 41 Bsfsclyp-8-fxkp-glucuronide, U Not Detected ng/mL 42 Methadone, Ur Not Detected ng/mL Cutoff: 25 43 Eddp, Ur Not Detected ng/mL Cutoff: 25 44 Propoxyphene, Ur Not Detected ng/mL Cutoff: 25 45 Norpropoxyphene, Ur Not Detected ng/mL Cutoff: 25 46 Tramadol, Ur Not Detected ng/mL Cutoff: 25 47 O-desmethyltramadol, Ur Not Detected ng/mL Cutoff: 25 48 Tapentadol, Ur Not Detected ng/mL Cutoff: 25 49 N-desmethyltapentadol, Ur Not Detected ng/mL Cutoff: 50 50 Sbizurrwxf-oilh-dtxwxjnudvy, U Not Detected ng/mL 51 Buprenorphine, Ur Not Detected ng/mL Cutoff: 5 52 Norbuprenorphine, Ur Not Detected ng/mL Cutoff: 5 53 Norbuprenorphine glucuronide Not Detected ng/mL Cutoff: 20 54 Opioid Interpretation See Comment 55 THC Confirmation 03/15/2017 [facility] Urine Carboxy >500.0 ng/ mL 56 [place] [address] THC Confirm [phone] Urine THC Interpretation Positive. 57 Laboratory test 03/02/2017 [facility] TSH 0.94 mcIU/mL N 0.34- 5.60 58 [place] [address] [phone] T4 Free 0.69 ng/dL N 0.61-1.12 59 Parvovirus B19 03/02/2017 [facility] Parvovirus Negative Negative Igg [place] [address] (B19) IgG [phone] Antibody Parvovirus (B19) IgM Antibody Negative Negative Parvovirus Interpretation See Comment 60 Lead 03/02/2017 [facility] Lead <1.0 g/dL 0.0-4.9 61 [place] [address] [phone] Submitting Laboratory Phone [phone] 62 HIV 1/2 AB 03/02/2017 [facility] HIV 1 2 Nonreactive Nonreactive 63 [place] [address] Antibody [phone] Type And 03/02/2017 [facility] Patient [place] [address] Blood Type [phone] Antibody Screen NEGATIVE CBC With No 03/02/2017 [facility] White Blood 7.0 10^3/uL N 3.5-10.8 [place] [address] Count [phone] Red Blood Count 3.74 10^6/uL Low 4.0-5.4 Hemoglobin 12.6 g/dL N 12.0-16.0 Hematocrit 37 % N 35-47 Mean Corpuscular Volume 98 fL High 80-97 Mean Corpuscular Hemoglobin 34 pg High 27-31 Mean Corpuscular HGB Conc 35 g/dL N 31-36 Red Cell Distribution Width 12 % N 10.5-15 Platelet Count 193 10^3/uL N 150-450 Mean Platelet Volume 9 um3 N 7.4-10.4 PNL No 03/02/2017 [facility] Rubella Screen Immune IU/ mL Immune 64 [place] [address] [phone] Hemoglobin A1c 4.6 % N 4.0-5.6 65 Hepatitis B Surface Ag Nonreactive Nonreactive 66 Syphillis Igg W/Reflex RPR Nonreactive Nonreactive 67 CF + Sma 03/02/2017 [facility] cystic fibrosis Negative N spinal muscular atrophy Negative N 68 PDF Report SEE IMAGE Sequential Integrated SCRN 1 WA 03/02/2017 [facility] Interpretation SEE BELOW 69 Age Risk Down Syndrome 1:790 [facility] Down Syndrome Risk IN PROCESS <1:50 [facility] Trisomy 18 Risk IN PROCESS <1:100 Calculated Gestational Age 10.6 70 Chato-A 516.7 ng/mL 71 Chato-A Mom 0.82 HCG,Serum 42.2 IU/mL HCG Mom 0.35 NT Mom 0.83 72 Referring Physician Name CAREY 73 Referring Physician 74 Referring Physician Npi [id number] Date Of 1995 76 Collection Date 02/19/2017 77 Maternal Weight 133 lbs 78 Est'd Date Of Delivery 09/12/2017 79 AFSHIN Determined By U 80 Mother's Ethnic Origin 81 Number Of Fetuses 1 82 Insulin Depend Diabetic NO 83 Repeat Specimen NO 84 HX Of Neural Tube Defects NO 85 Prev Down Synd NO 86 Donor Egg NO 87 Donor Age:Egg Retrieval NOT GIVEN 88 Cigarette Smoker NG 89 Ultrasound Date 03/01/2017 90 Supervisor [employer]'s Name MARCELLUS 91 NTQR Supervisor [employer] Equipment Maintenance Id# [id number] NTQR Location Id# [id number] NTQR Reading Phys Id# [id number] FMF Supervisor [employer] Equipment Maintenance Id# NOT GIVEN 95 [place] Rump Length 56 mm 96 Nuchal Translucency 1.1 mm 97 Nasal Bone NOT GIVEN 98 If Twins NOT GIVEN 99 Twin B CRL NG mm 100 Twin B NT NG mm 101 Twin B Nasal Bone NG 102 Laboratory test 02/14/2017 [facility] Cytology SEE RESULT [address] [place] [address] BELOW [phone] Urine Culture And 02/14/2017 [facility] Urine Culture SEE RESULT [address] [place] [address] BELOW [phone] Laboratory test 08/28/2016 [facility] Prolactin 9.0 ng/mL N 1.0- 105 [place] [address] 25.0 [phone] Laboratory test 11/03/2014 [facility] Cytology SEE RESULT [address] [place] [address] BELOW [phone] Laboratory test 10/17/2013 [facility] TSH (Thyroid 0.83 IU/mL N 0.34 [place] [address] Stimulating -5.6 [phone] Horm) 0 Prolactin 14.3 ng/mL N 1.0-25.0 Follicle Stimulating Hormone 5.2 IU/mL N 107 Serum Negative N Negative 108 Luteinizing Hormone 16.2 IU/mL N 109 Insulin Level 16.1 mcIU/mL N 2.6 - 24.9 110 Glucose 87 mg/dL N 70-100 1 SEE RESULT BELOW Name: GENA CONTRERAS : [address]: Stacie Moseley [facility] Acct: [id number] Unit: [id number] AGE: 22 Location: [facility] Re09/24/17 SEX: F Status: REG REF SPEC: [id number] BRETT: 09/24/17-[address]: Stacie BLACK REQ: [id number] RECD: 09/24/17 STATUS: COMP _ SOURCE: URINE SPDESC: ORDERED: Urine Culture COMMENTS: [id number] QUERIES: Urine Source: Random Procedure Result Reported Site Urine Culture Final 09/25/17- 1659 ML No Growth (<1,000 CFU/mL) * - Main Lab . END OF REPORT DEPARTMENT OF PATHOLOGY, [address] [place] [address] Brian Sosa M.D. Director SELINA # [id number] 2 SEE RESULT BELOW Name: DMITRY GENA BELLAMY : [address]: Fe Carey CNM Acct: [id number] Unit: [id number] AGE: 22 Location: [facility] Re08/13/17 SEX: F Status: REG REF SPEC: [id number] BRETT: 08/13/17 [facility] DR: Fe Carey [facility] REQ: [id number] RECD: 08/13/17 STATUS: COMP _ SOURCE: CER/VAG/RE SPDESC: ORDERED: Grp B Strp Scrn COMMENTS: [id number] QUERIES: Is patient penicillin allergic and/or sensitivities needed? N Provider Requisition # C77#[id number]_ Procedure Result Reported Site Group B Strep Culture Screen Final 08/15/17- 932 ML Group B Strep Screen Negative * ML - Main Lab . END OF REPORT DEPARTMENT OF PATHOLOGY, [address] [place] [address] Brian Sosa M.D. Director [facility] # [id number] 3 SEE RESULT BELOW Name: GENA CONTRERAS : [address]: Stacie Moseley CNM Acct: [id number] Unit: [id number] AGE: 22 Location: [facility] Re07/29/17 SEX: F Status: DEP REF SPEC: [id number] BRETT: 07/30/[address]: Stacie Moseley [facility] REQ: [id number] RECD: 07/30/17 STATUS: JIGNA CLARK DR: Miguel Tripathi MD _ SOURCE: URINE SPDESC: ORDERED: Urine Culture Procedure Result Reported Site Urine Culture Final 07/31/17- 941 ML No Growth (<1,000 CFU/mL) * ML - Main Lab . END OF REPORT DEPARTMENT OF PATHOLOGY, [address] [place] [address] Brian Sosa M.D. Director CLIA # [id number] 4 *Ascorbic acid is present which may interfere with detection of blood. 5 [id number] ADDITIONAL INFORMATION This test has been modified from the dental assistant instructor's instructions. Its performance characteristics were determined by [facility] in a manner consistent with CLIA requirements. This test has not been cleared or approved by the U.S. Food and Drug Administration. 7 REFERENCE VALUE No abnormal variants ADDITIONAL INFORMATION This test has been modified from the dental assistant instructor's instructions. Its performance characteristics were determined by [facility] in a manner consistent with CLIA requirements. This test has not been cleared or approved by the U.S. Food and Drug Administration. 8 No electrophoretic evidence of abnormal hemoglobin or beta thalassemia. See comment. Comment: These results do not exclude alpha thalassemia. The vast majority of hemoglobin variants and beta thalassemias are excluded, although some rare clinically significant hemoglobin disorders are electrophoretically silent. If otherwise unexplained lifelong/familial symptoms such as hemolysis (i.e. Nghia body hemolytic anemia), microcytosis, erythrocytosis, cyanosis, or hypoxia are present and additional testing is desired, please call the Met[facility] Hematology Laboratory ( ). If alpha thalassemia is a consideration, alpha globin gene deletion/duplication analysis is available (ATHAL/Alpha-Globin Gene Analysis). Additional sample required. Test Performed by: [address] [address] 9 SCREEN NEGATIVE FOR OPEN NTD, DOWN SYNDROME AND TRISOMY 18. NT WAS USED IN THE RISK CALCULATIONS. 10 [place] rump length (CRL) was used to calculate gestational age. AFSHIN, if provided, was not used for gestational age dating. 11 Reference Range: <2.50 IDD <1.90 TWINS <4.00 TWINS IDD <3.50 TRIPLETS <4.50 12 This test was performed using a kit that has not been cleared or approved by the FDA. The analytical performance characteristics of this test have been determined by [facility] Scott Watts. This test should not be used for diagnosis without confirmation by other medically established means. 13 The Sequential Integrated Screen combines CHATO-A and hCG with or without a nuchal translucency measurement in the first trimester with AFP, unconjugated estriol, intact hCG and Inhibin A in the second trimester. This provides a useful screening test for detection of open neural tube defects, Down syndrome and Trisomy 18. It should be noted that normal results can never guarantee the of a normal baby and that 2 to 3 percent of newborns have some type of physical or mental defect, many of which are undetectable through any known diagnostic technique. INTERPRETATION REVIEWED BY: KEATON IQBAL MD, DABMG, FACMG, KELLIE TIJERINA([facility]), [facility] 14 15 For additional information, please refer to http://education.Stylecrook/faq/FAQ94 (This link is provided for informational/educational purposes only.) This is a screening test, not a diagnostic test. This risk assessment is based on demographic data provided by the ordering physician. Please notify the laboratory promptly if any data are incorrect. It has been observed that patients who smoke cigarettes during may have a slightly increased risk of having a false positive JAYJAY screen for Down Syndrome or trisomy 18. If you have questions concerning this report: For clinical consultation, call ; For technical questions, call ext [phone]; For recalculations, fax to [phone]. 16 REFERENCE VALUE Cutoff: 500 17 REFERENCE VALUE Cutoff: 200 18 REFERENCE VALUE Cutoff: 100 19 REFERENCE VALUE Cutoff: 150 20 Presumptive Positive Drug confirmation to follow. Presumptive Positive means that the screening method is positive, but the test needs to be run by a confirmatory method before being finalized. ADDITIONAL INFORMATION This report is intended for use in clinical monitoring or management of patients. It is not intended for use in employment-related testing. 21 REFERENCE VALUE Cutoff: 200 mg/L 22 Tylenol 3 23 Metabolite of codeine REFERENCE VALUE Cutoff: 100 24 Lisseth Wang MS Contin; Also a minor metabolite (10%) of codeine and can be seen in low concentrations (<2,000 ng/mL) with poppy seed ingestion. 25 Metabolite of morphine REFERENCE VALUE Cutoff: 100 26 Metabolite of heroin 27 Lortab, [place], Vicodin; Also a very minor metabolite of codeine and impurity (<1%) of oxycodone. 28 Metabolite of hydrocodone 29 Metabolite of hydrocodone 30 Dilaudid, Exalgo; Also a metabolite of hydrocodone and a minor (<5%) metabolite of morphine. 31 Metabolite of hydromorphone REFERENCE VALUE Cutoff: 100 32 Endocet, Percocet, Oxycontin 33 Metabolite of oxycodone 34 Numorphan, Opana; Also a metabolite of oxycodone. 35 Metabolite of oxymorphone REFERENCE VALUE Cutoff: 100 36 Metabolite of oxymorphone 37 Actiq, Duragesic, Fentora 38 Metabolite of fentanyl 39 Demerol 40 Metabolite of meperidine 41 Narcan 42 Metabolite of naloxone REFERENCE VALUE Cutoff: 100 43 Dolophine 44 Metabolite of methadone 45 Darvon, Darvocet 46 Metabolite of propoxyphene 47 Tradol, Ultram, Ultracet 48 Metabolite of tramadol 49 Nucynta 50 Metabolite of tapentadol 51 Metabolite of tapentadol REFERENCE VALUE Cutoff: 100 52 Buprenex, Suboxone 53 Metabolite of buprenorphine 54 Metabolite of buprenorphine 55 No opioids were detected. The absence of expected drug(s) and/or drug metabolite(s) may indicate non-compliance, altered pharmacokinetics, inappropriate timing of specimen collection relative to drug administration, diluted/adulterated urine, or limitations of testing. ADDITIONAL INFORMATION This test was developed and its performance characteristics determined by [facility] in a manner consistent with CLIA requirements. This test has not been cleared or approved by the U.S. Food and Drug Administration. Test Performed by: [facility] [address] [place] [address] 56 REFERENCE VALUE Cutoff: 3.0 57 ADDITIONAL INFORMATION This report is intended for use in clinical monitoring and management of patients. It is not intended for use in employment-related testing. This test was developed and its performance characteristics determined by [facility] in a manner consistent with CLIA requirements. This test has not been cleared or approved by the U.S. Food and Drug Administration. Test Performed by: [facility] - [address] [address] 58 [id number] No antibody to Parvovirus B19 detected. Acute infection cannot be ruled out as antibody levels may be below the limit of detection. If clinically indicated, a second serum should be submitted in 14-21 days. ADDITIONAL INFORMATION This test has been modified from the dental assistant instructor's instructions. Its performance characteristics were determined by [facility] in a manner consistent with CLIA requirements. This test has not been cleared or approved by the U.S. Food and Drug Administration. Test Performed by: [facility] - [address] [address] ADDITIONAL INFORMATION Testing performed by Inductively Coupled Plasma-Mass Spectrometry (ICP-MS). This test was developed and its performance characteristics determined by [facility] in a manner consistent with CLIA requirements. This test has not been cleared or approved by the U.S. Food and Drug Administration. 62 Test Performed by: [facility] - [address] [address] It is recognized that currently available assays for the detection of antibodies to HIV-1 and/or HIV-2 may not detect all infected individuals. HIV antibodies may be undetectable in some stages of the infection and in some clinical conditions. The performance of this assay has not been established for populations of infants or children. Assayed by Chemiluminescence Microparticle Immunoassay on the Siemens Advia Centaur CP. Values obtained with different methods or kits cannot be used interchangeably.The diagnostic specificity of the ADVIA Centaur 1/O/2 Enhanced assay in the low risk population was 99.90% (6052/6058) with a 95% confidence interval of 99.78 to 99.96%. 64 [id number] Therapeutic target for the treatment of diabetes mellitus patients is <7% HBA1C, and in selective patients <6.0%. Please refer to [place] [employer] diabetic care guidelines for further information. 66 [id number] 67 Warning: A positive result is not useful for establishing a diagnosis of syphilis. In most situations, such a result may reflect a prior treated infection; a negative result can exclude a diagnosis of syphilis except for incubating or early primary disease. 68 Negative result: SMN1: 3+ copies. 69 This patient's risk does not exceed the first trimester cut-off for Down syndrome or trisomy 18. The integrated screen calculation is awaiting the second trimester sample. NT WAS USED IN THE RISK CALCULATIONS. Thank you for submitting this patient's Part 1 specimen. These first trimester values will be incorporated with the second trimester values as part of the integrated testing process. Please submit the Part 2 specimen between 03/22/2017-05/16/2017 (15.0 and 22.9 weeks gestation) with 03/22/2017-04/04/2017 (15.0 - 16.9 weeks gestation) being optimal. When submitting Part 2, please include the following Specimen # from Part 1: [id number] 70 [place] rump length (CRL) was used to calculate gestational age. AFSHIN, if provided, was not used for gestational age dating. 71 This test was performed using a kit that has not been cleared or approved by the FDA. The analytical performance characteristics of this test have been determined by [facility]. This test should not be used for diagnosis without confirmation by other medically established means. 72 Interpretation reviewed by: Ruiz June, Ph.D., [facility] For additional information, please refer to [email or web address] (This link is being provided for informational/educational purposes only.) This is a screening test, not a diagnostic test. This risk assessment is based on demographic data provided by the ordering physician. Please notify the laboratory promptly if any data are incorrect. It has been observed that patients who smoke cigarettes during may have a slightly increased risk of having a false positive JAYJAY screen for Down Syndrome or trisomy 18 If you have questions concerning this report: For clinical consultation, call ; For technical questions, call ext [phone]; For recalculations, fax to [phone]. 73 For additional information, please refer to [email or web address] (This link is being provided for informational/educational purposes only.) This is a screening test, not a diagnostic test. This risk assessment is based on demographic data provided by the ordering physician. Please notify the laboratory promptly if any data are incorrect. It has been observed that patients who smoke cigarettes during may have a slightly increased risk of having a false positive JAYJAY screen for Down Syndrome or trisomy 18 If you have questions concerning this report: For clinical consultation, call ; For technical questions, call ext [phone]; For recalculations, fax to [phone]. 74 For additional information, please refer to [email or web address] (This link is being provided for informational/educational purposes only.) This is a screening test, not a diagnostic test. This risk assessment is based on demographic data provided by the ordering physician. Please notify the laboratory promptly if any data are incorrect. It has been observed that patients who smoke cigarettes during may have a slightly increased risk of having a false positive JAYJAY screen for Down Syndrome or trisomy 18 If you have questions concerning this report: For clinical consultation, call ; For technical questions, call ext [phone]; For recalculations, fax to [phone]. 75 For additional information, please refer to [email or web address] (This link is being provided for informational/educational purposes only.) This is a screening test, not a diagnostic test. This risk assessment is based on demographic data provided by the ordering physician. Please notify the laboratory promptly if any data are incorrect. It has been observed that patients who smoke cigarettes during may have a slightly increased risk of having a false positive JAYJAY screen for Down Syndrome or trisomy 18 If you have questions concerning this report: For clinical consultation, call ; For technical questions, call ext [phone]; For recalculations, fax to [phone]. 76 For additional information, please refer to [email or web address] (This link is being provided for informational/educational purposes only.) This is a screening test, not a diagnostic test. This risk assessment is based on demographic data provided by the ordering physician. Please notify the laboratory promptly if any data are incorrect. It has been observed that patients who smoke cigarettes during may have a slightly increased risk of having a false positive JAYJAY screen for Down Syndrome or trisomy 18 If you have questions concerning this report: For clinical consultation, call ; For technical questions, call ext [phone]; For recalculations, fax to [phone]. 77 For additional information, please refer to [email or web address] (This link is being provided for informational/educational purposes only.) This is a screening test, not a diagnostic test. This risk assessment is based on demographic data provided by the ordering physician. Please notify the laboratory promptly if any data are incorrect. It has been observed that patients who smoke cigarettes during may have a slightly increased risk of having a false positive JAYJAY screen for Down Syndrome or trisomy 18 If you have questions concerning this report: For clinical consultation, call ; For technical questions, call ext [phone]; For recalculations, fax to [phone]. 78 For additional information, please refer to [email or web address] (This link is being provided for informational/educational purposes only.) This is a screening test, not a diagnostic test. This risk assessment is based on demographic data provided by the ordering physician. Please notify the laboratory promptly if any data are incorrect. It has been observed that patients who smoke cigarettes during may have a slightly increased risk of having a false positive JAYJAY screen for Down Syndrome or trisomy 18 If you have questions concerning this report: For clinical consultation, call ; For technical questions, call ext [phone]; For recalculations, fax to [phone]. 79 For additional information, please refer to [email or web address] (This link is being provided for informational/educational purposes only.) This is a screening test, not a diagnostic test. This risk assessment is based on demographic data provided by the ordering physician. Please notify the laboratory promptly if any data are incorrect. It has been observed that patients who smoke cigarettes during may have a slightly increased risk of having a false positive JAYJAY screen for Down Syndrome or trisomy 18 If you have questions concerning this report: For clinical consultation, call ; For technical questions, call ext [phone]; For recalculations, fax to [phone]. 80 For additional information, please refer to [email or web address] (This link is being provided for informational/educational purposes only.) This is a screening test, not a diagnostic test. This risk assessment is based on demographic data provided by the ordering physician. Please notify the laboratory promptly if any data are incorrect. It has been observed that patients who smoke cigarettes during may have a slightly increased risk of having a false positive JAYJAY screen for Down Syndrome or trisomy 18 If you have questions concerning this report: For clinical consultation, call ; For technical questions, call ext [phone]; For recalculations, fax to [phone]. 81 For additional information, please refer to [email or web address] (This link is being provided for informational/educational purposes only.) This is a screening test, not a diagnostic test. This risk assessment is based on demographic data provided by the ordering physician. Please notify the laboratory promptly if any data are incorrect. It has been observed that patients who smoke cigarettes during may have a slightly increased risk of having a false positive JAYJAY screen for Down Syndrome or trisomy 18 If you have questions concerning this report: For clinical consultation, call ; For technical questions, call ext [phone]; For recalculations, fax to [phone]. 82 For additional information, please refer to [email or web address] (This link is being provided for informational/educational purposes only.) This is a screening test, not a diagnostic test. This risk assessment is based on demographic data provided by the ordering physician. Please notify the laboratory promptly if any data are incorrect. It has been observed that patients who smoke cigarettes during may have a slightly increased risk of having a false positive JAYJAY screen for Down Syndrome or trisomy 18 If you have questions concerning this report: For clinical consultation, call ; For technical questions, call ext [phone]; For recalculations, fax to [phone]. 83 For additional information, please refer to [email or web address] (This link is being provided for informational/educational purposes only.) This is a screening test, not a diagnostic test. This risk assessment is based on demographic data provided by the ordering physician. Please notify the laboratory promptly if any data are incorrect. It has been observed that patients who smoke cigarettes during may have a slightly increased risk of having a false positive JAYJAY screen for Down Syndrome or trisomy 18 If you have questions concerning this report: For clinical consultation, call ; For technical questions, call ext [phone]; For recalculations, fax to [phone]. 84 For additional information, please refer to [email or web address] (This link is being provided for informational/educational purposes only.) This is a screening test, not a diagnostic test. This risk assessment is based on demographic data provided by the ordering physician. Please notify the laboratory promptly if any data are incorrect. It has been observed that patients who smoke cigarettes during may have a slightly increased risk of having a false positive JAYJAY screen for Down Syndrome or trisomy 18 If you have questions concerning this report: For clinical consultation, call ; For technical questions, call ext [phone]; For recalculations, fax to [phone]. 85 For additional information, please refer to [email or web address] (This link is being provided for informational/educational purposes only.) This is a screening test, not a diagnostic test. This risk assessment is based on demographic data provided by the ordering physician. Please notify the laboratory promptly if any data are incorrect. It has been observed that patients who smoke cigarettes during may have a slightly increased risk of having a false positive JAYJAY screen for Down Syndrome or trisomy 18 If you have questions concerning this report: For clinical consultation, call ; For technical questions, call ext [phone]; For recalculations, fax to [phone]. 86 For additional information, please refer to [email or web address] (This link is being provided for informational/educational purposes only.) This is a screening test, not a diagnostic test. This risk assessment is based on demographic data provided by the ordering physician. Please notify the laboratory promptly if any data are incorrect. It has been observed that patients who smoke cigarettes during may have a slightly increased risk of having a false positive JAYJAY screen for Down Syndrome or trisomy 18 If you have questions concerning this report: For clinical consultation, call ; For technical questions, call ext [phone]; For recalculations, fax to [phone]. 87 For additional information, please refer to [email or web address] (This link is being provided for informational/educational purposes only.) This is a screening test, not a diagnostic test. This risk assessment is based on demographic data provided by the ordering physician. Please notify the laboratory promptly if any data are incorrect. It has been observed that patients who smoke cigarettes during may have a slightly increased risk of having a false positive JAYJAY screen for Down Syndrome or trisomy 18 If you have questions concerning this report: For clinical consultation, call ; For technical questions, call ext [phone]; For recalculations, fax to [phone]. 88 For additional information, please refer to [email or web address] (This link is being provided for informational/educational purposes only.) This is a screening test, not a diagnostic test. This risk assessment is based on demographic data provided by the ordering physician. Please notify the laboratory promptly if any data are incorrect. It has been observed that patients who smoke cigarettes during may have a slightly increased risk of having a false positive JAYJAY screen for Down Syndrome or trisomy 18 If you have questions concerning this report: For clinical consultation, call ; For technical questions, call ext [phone]; For recalculations, fax to [phone]. 89 For additional information, please refer to [email or web address] (This link is being provided for informational/educational purposes only.) This is a screening test, not a diagnostic test. This risk assessment is based on demographic data provided by the ordering physician. Please notify the laboratory promptly if any data are incorrect. It has been observed that patients who smoke cigarettes during may have a slightly increased risk of having a false positive JAYJAY screen for Down Syndrome or trisomy 18 If you have questions concerning this report: For clinical consultation, call ; For technical questions, call ext [phone]; For recalculations, fax to [phone]. 90 For additional information, please refer to [email or web address] (This link is being provided for informational/educational purposes only.) This is a screening test, not a diagnostic test. This risk assessment is based on demographic data provided by the ordering physician. Please notify the laboratory promptly if any data are incorrect. It has been observed that patients who smoke cigarettes during may have a slightly increased risk of having a false positive JAYJAY screen for Down Syndrome or trisomy 18 If you have questions concerning this report: For clinical consultation, call ; For technical questions, call ext [phone]; For recalculations, fax to [phone]. 91 For additional information, please refer to [email or web address] (This link is being provided for informational/educational purposes only.) This is a screening test, not a diagnostic test. This risk assessment is based on demographic data provided by the ordering physician. Please notify the laboratory promptly if any data are incorrect. It has been observed that patients who smoke cigarettes during may have a slightly increased risk of having a false positive JAYJAY screen for Down Syndrome or trisomy 18 If you have questions concerning this report: For clinical consultation, call ; For technical questions, call ext [phone]; For recalculations, fax to [phone]. 92 For additional information, please refer to [email or web address] (This link is being provided for informational/educational purposes only.) This is a screening test, not a diagnostic test. This risk assessment is based on demographic data provided by the ordering physician. Please notify the laboratory promptly if any data are incorrect. It has been observed that patients who smoke cigarettes during may have a slightly increased risk of having a false positive JAYJAY screen for Down Syndrome or trisomy 18 If you have questions concerning this report: For clinical consultation, call ; For technical questions, call ext [phone]; For recalculations, fax to [phone]. 93 For additional information, please refer to [email or web address] (This link is being provided for informational/educational purposes only.) This is a screening test, not a diagnostic test. This risk assessment is based on demographic data provided by the ordering physician. Please notify the laboratory promptly if any data are incorrect. It has been observed that patients who smoke cigarettes during may have a slightly increased risk of having a false positive JAYJAY screen for Down Syndrome or trisomy 18 If you have questions concerning this report: For clinical consultation, call ; For technical questions, call ext [phone]; For recalculations, fax to [phone]. 94 For additional information, please refer to [email or web address] (This link is being provided for informational/educational purposes only.) This is a screening test, not a diagnostic test. This risk assessment is based on demographic data provided by the ordering physician. Please notify the laboratory promptly if any data are incorrect. It has been observed that patients who smoke cigarettes during may have a slightly increased risk of having a false positive JAYJAY screen for Down Syndrome or trisomy 18 If you have questions concerning this report: For clinical consultation, call ; For technical questions, call ext [phone]; For recalculations, fax to [phone]. 95 For additional information, please refer to [email or web address] (This link is being provided for informational/educational purposes only.) This is a screening test, not a diagnostic test. This risk assessment is based on demographic data provided by the ordering physician. Please notify the laboratory promptly if any data are incorrect. It has been observed that patients who smoke cigarettes during may have a slightly increased risk of having a false positive JAYJAY screen for Down Syndrome or trisomy 18 If you have questions concerning this report: For clinical consultation, call ; For technical questions, call ext [phone]; For recalculations, fax to [phone]. 96 For additional information, please refer to [email or web address] (This link is being provided for informational/educational purposes only.) This is a screening test, not a diagnostic test. This risk assessment is based on demographic data provided by the ordering physician. Please notify the laboratory promptly if any data are incorrect. It has been observed that patients who smoke cigarettes during may have a slightly increased risk of having a false positive JAYJAY screen for Down Syndrome or trisomy 18 If you have questions concerning this report: For clinical consultation, call ; For technical questions, call ext [phone]; For recalculations, fax to [phone]. 97 For additional information, please refer to [email or web address] (This link is being provided for informational/educational purposes only.) This is a screening test, not a diagnostic test. This risk assessment is based on demographic data provided by the ordering physician. Please notify the laboratory promptly if any data are incorrect. It has been observed that patients who smoke cigarettes during may have a slightly increased risk of having a false positive JAYJAY screen for Down Syndrome or trisomy 18 If you have questions concerning this report: For clinical consultation, call ; For technical questions, call ext [phone]; For recalculations, fax to [phone]. 98 For additional information, please refer to [email or web address] (This link is being provided for informational/educational purposes only.) This is a screening test, not a diagnostic test. This risk assessment is based on demographic data provided by the ordering physician. Please notify the laboratory promptly if any data are incorrect. It has been observed that patients who smoke cigarettes during may have a slightly increased risk of having a false positive JAYJAY screen for Down Syndrome or trisomy 18 If you have questions concerning this report: For clinical consultation, call ; For technical questions, call ext [phone]; For recalculations, fax to [phone]. 99 For additional information, please refer to [email or web address] (This link is being provided for informational/educational purposes only.) This is a screening test, not a diagnostic test. This risk assessment is based on demographic data provided by the ordering physician. Please notify the laboratory promptly if any data are incorrect. It has been observed that patients who smoke cigarettes during may have a slightly increased risk of having a false positive JAYJAY screen for Down Syndrome or trisomy 18 If you have questions concerning this report: For clinical consultation, call ; For technical questions, call ext [phone]; For recalculations, fax to [phone]. 32 For additional information, please refer to 0 [email or web address] (This link is being provided for informational/educational purposes only.) This is a screening test, not a diagnostic test. This risk assessment is based on demographic data provided by the ordering physician. Please notify the laboratory promptly if any data are incorrect. It has been observed that patients who smoke cigarettes during may have a slightly increased risk of having a false positive JAYJAY screen for Down Syndrome or trisomy 18 If you have questions concerning this report: For clinical consultation, call ; For technical questions, call ext [phone]; For recalculations, fax to [phone]. 76 For additional information, please refer to 1 [email or web address] (This link is being provided for informational/educational purposes only.) This is a screening test, not a diagnostic test. This risk assessment is based on demographic data provided by the ordering physician. Please notify the laboratory promptly if any data are incorrect. It has been observed that patients who smoke cigarettes during may have a slightly increased risk of having a false positive JAYJAY screen for Down Syndrome or trisomy 18 If you have questions concerning this report: For clinical consultation, call ; For technical questions, call ext [phone]; For recalculations, fax to [phone] For additional information, please refer to 2 [email or web address] (This link is being provided for informational/educational purposes only.) This is a screening test, not a diagnostic test. This risk assessment is based on demographic data provided by the ordering physician. Please notify the laboratory promptly if any data are incorrect. It has been observed that patients who smoke cigarettes during may have a slightly increased risk of having a false positive JAYJAY screen for Down Syndrome or trisomy 18 If you have questions concerning this report: For clinical consultation, call ; For technical questions, call ext [phone]; For recalculations, fax to [phone]. [phone] SEE RESULT BELOW 3 Name: GENA CONTRERAS : [address]: Fe Carey CNM Acct: [id number] Unit: [id number] AGE: 21 Location: [facility] Re02/14/17 SEX: F Status: REG REF SPEC: [id number] BRETT: 02/14/17-1018 [facility] DR: Fe Carey CNM REQ: [id number] RECD: 02/14/17 STATUS: SOUT _ ORDERED: TP IMAGE ANAL COMMENTS: [id number] Negative for Intraepithelial lesion or Malignancy A. Ectocervical/Endocervical Specimen Adequacy: Satisfactory of evaluation Transformation zone component identified Patient Information: HPV: Thin Layer Pap Test w/reflex to high risk HPV RNA testing when ASCUS Actual Specimen Date: 02/14/17 Last Menstrual Date: 11/30/16 Date of Last Specimen: 11/03/14 ?: Y Post Menopausal?: N Hysterectomy?: N Previous Abnormal Pap Smears?:N Signed (signature on file) DomWAGNER Kuhn (ASCP) 02/15 1413 This Pap test was evaluated with the assistance of the MetaIntellPrep Test Imaging System. Due to cytologic findings at the material inspector microscope, comprehensive manual rescreening by a Pharmacy Coordinator may be required. The Pap Smear is a screening test designed to aid in the detection of premalignant and malignant conditions of the uterine cervix. It is not a diagnostic procedure and should not be used as the sole means of detecting cervical cancer. Both false- positive and false- negative reports do occur. Depending on your risk status, a Pap smear should be obtained and evaluated every 1-3 years. END OF REPORT * ML=Testing performed at Main Lab DEPARTMENT OF PATHOLOGY, [address] [place] [address] Brian Sosa M.D. Director [facility] # [id number] 10 SEE RESULT BELOW 4 Name: GENA CONTRERAS : [address]: Fe Carey [facility] Acct: [id number] Unit: [id number] AGE: 21 Location: [facility] Re02/14/17 SEX: F Status: REG REF SPEC: [id number] BRETT: 02/14/17 [facility] DR: Fe Carey [facility] REQ: [id number] RECD: 02/14/17 STATUS: COMP _ SOURCE: URINE SPDESC: ORDERED: Urine Culture COMMENTS: [id number] Urine Source: Random Procedure Result Reported Site Urine Culture Final 02/15/17- 1350 ML No Growth (<1,000 CFU/mL) * ML - MAIN LAB ([facility]) . END OF REPORT * ML=Testing performed at Main Lab DEPARTMENT OF PATHOLOGY, [address] [place] [address] Brian Sosa M.D. Director [facility] # [id number] 10 [id number] 10 SEE RESULT BELOW 6 Name: DMITRY ESCOTOGENA NORTH : [address]: Meghna Davis NP Acct: [id number] Unit: [id number] AGE: 19 Location: [facility] Re11/03/14 SEX: F Status: REG REF SPEC: [id number] BRETT: 11/03/14-[address]: Meghna Davis NP REQ: [id number] RECD: 11/03/14-1636 STATUS: SOUT _ ORDERED: IMAGE ANALYSIS FINAL DIAGNOSIS Negative for Intraepithelial lesion or Malignancy A. Ectocervical/Endocervical Specimen Adequacy: Satisfactory of evaluation Transformation zone component identified Patient Information: HPV: Thin Layer Pap Test w/reflex to high risk HPV RNA testing when ASCUS Actual Specimen Date: 11/03/14 Last Menstrual Date: 11/01/14 ?: N Signed (signature on file) WAGNER Dewitt (ASCP) 11/04 4221 This Pap test was evaluated with the assistance of the ThinPrep Test Imaging System. Due to cytologic findings at the material inspector microscope, comprehensive manual rescreening by a Pharmacy Coordinator may be required. The Pap Smear is a screening test designed to aid in the detection of premalignant and malignant conditions of the uterine cervix. It is not a diagnostic procedure and should not be used as the sole means of detecting cervical cancer. Both false- positive and false- negative reports do occur. Depending on your risk status, a Pap smear should be obtained and evaluated every 1-3 years. END OF REPORT * ML=Testing performed at Main Lab DEPARTMENT OF PATHOLOGY, [address] [place] [address] Brian Sosa M.D. Director [facility] # [id number] 10 Normally menstruating females 7 - Follicular phase 3 - 9 - Mid-cycle peak 4 - 23 - Luteal phase 1 - 6 Postmenopausal females 16 - 114 10 This test detects intact HCG only and is indicated for the 8 early detection of . 10 Normally menstruating females 9 - Follicular Phase 1 - 18 - Mid-Cycle Peak 24 - 105 - Luteal Phase 0.6 - 20 Postmenopausal females 15 - 62 11 Test Performed by: [address] [place] [id number] Knockdown Worker: Bon Jaquez III, M.D. Procedures Date Code Description Status 12/17/2017 66786 Insert Intrauterine Device Completed 09/13/2017 98739 Obstetric Care Routine Completed 08/13/2017 66348 Echography Uterus Limited Completed 07/29/2017 36679 Non-Stress Test Completed 07/25/2017 12405 Non-Stress Test Completed 06/25/2017 17799 Non-Stress Test Completed 05/02/2017 62278 Echography Uterus Complete Completed 03/02/2017 27166 Nuchal Translucency Ultrasound /First Gestation Completed 02/14/2017 89797 OB Ultrasound First Trimester Completed 08/28/2016 38346 Echography Transvaginal Completed 11/10/2014 83215 Remove Contraceptive Capsule Completed 12/17/2013 84930 Echography Transvaginal Completed Encounters Type Date Location Provider Dx Diagnosis Office Visit 01/22/2018 [facility] Kathy Anthony MD Z30.431 Encounter for routine 9:15a checking of intrauterine contracep dev Office Visit 07/29/2017 Delivery Stacie Moseley, O47.03 False labor before 37 11:14a CNM completed weeks of gest, third tri Office Visit 07/25/2017 Delivery Nancy Guidry, O47.03 False labor before 37 9:11a CNM completed weeks of gest, third tri Office Visit 08/28/2016 [facility] Kathy Anthony MD R10.30 Lower abdominal pain, 2:00p unspecified Office Visit 07/12/2016 [facility] Kathy Anthony MD N92.6 Irregular 11:30a menstruation, unspecified R10.2 Pelvic and perineal pain Office Visit 07/01/2015 10:00a [facility] Meghna Davis, Z31.61 Procreat counseling STORM SASH MAKER and advice using natural family planning Office Visit 11/03/2014 10:00a [facility] Meghna Davis, Z01.419 Encntr for food beverage manager exam STORM SASH MAKER (general) (routine) w/o abn findings Z12.4 Encounter for screening for malignant neoplasm of cervix N92.1 Excessive and frequent menstruation with irregular cycle Office Visit 12/17/2013 9:30a [facility] Office Meghna Davis 789.9 Abdomen & Pelvis STORM SASH MAKER Symptoms Other Office Visit 11/18/2013 8:30a [facility] Meghna Davis 789.9 Abdomen & Pelvis STORM SASH MAKER Symptoms Other Office Visit 10/24/2013 10:40a [facility] Ayaan Garvin6.8 Menstruation & Other Oma Laurent Abnormal Bleeding Disorders Other 789.9 Abdomen & Pelvis Symptoms Other Office Visit 10/16/2013 11:00a [facility] Ayaan Zhneg.8 Menstruation & Geoffrey Laurent M.D. Abnormal Bleeding Disorders Other Plan of Treatment No Information Available
[2018-02-10 15:07] VITALS: BP 91/65
--- NOTE | 2018-02-10 15:29 | UC ---
Ear Complaint HPI - HPI Summary HPI Summary: 22-year-old woman here with a chief complaint of bilateral ear pain. Pain is worse on the left than the right. She's had an upper respiratory tract infection symptoms for approximately 2 weeks. Overall the upper respiratory tract infection symptoms have been improving but then the ear pain showed up yesterday. No known trauma she is not a swimmer. No recent fevers. She is breast-feeding. No cough or chest congestion. - History of Current Complaint Chief Complaint: UCEar Stated Complaint: EAR COMPLAINT Time Seen by Provider: 02/10/18 15:20 Hx Last Menstrual Period: before baby - 5 mos old Pain Intensity: 6 - Allergies/Home Medications Allergies/Adverse Reactions: Allergies Allergy/AdvReac Type Severity Reaction Status Date / Time cefprozil Allergy Rash Verified 02/10/18 15:02 acetaminophen [From Percocet] AdvReac Nausea And Verified 02/10/18 15:02 Vomiting oxycodone [From Percocet] AdvReac Nausea And Verified 02/10/18 15:02 Vomiting PMH/Surg Hx/FS Hx/Imm Hx Previously Healthy: Yes - Surgical History Surgical History: Yes Surgery Procedure, Year, and Place: Tonsillectomy middle school age. [place] teeth removal 2009 - Family History Known Family History: Positive: Unknown - Patient is adopted., Hypertension - Social History Alcohol Use: None Substance Use Type: Marijuana Substance Use Comment - Amount & Last Used: yesterday Smoking Status (MU): Never Smoked Tobacco - Immunization History Most Recent Influenza Vaccination: fall 2016 Most Recent Tetanus Shot: UTD Most Recent Pneumonia Vaccination: unsure Review of Systems All Other Systems Reviewed And Are Negative: Yes Constitutional: Positive: Negative Skin: Positive: Negative Eyes: Positive: Negative ENT: Positive: Sore Throat, Ear Ache, Nasal Discharge, Sinus Congestion Respiratory: Positive: Negative Cardiovascular: Positive: Negative Gastrointestinal: Positive: Negative Motor: Positive: Negative Neurovascular: Positive: Negative Musculoskeletal: Positive: Negative Neurological: Positive: Negative Psychological: Positive: Negative Is Patient Immunocompromised?: No Physical Exam Triage Information Reviewed: Yes Appearance: Well-Appearing, No Pain Distress, Well-Nourished Vital Signs: Initial Vital Signs Temp 98.5 F 02/10/18 15:02 Pulse 78 02/10/18 15:02 Resp 16 02/10/18 15:02 BP 91/65 02/10/18 15:02 Pulse Ox 98 02/10/18 15:02 Vital Signs Reviewed: Yes Eye Exam: Normal Eyes: Positive: Conjunctiva Clear ENT: Positive: Pharyngeal erythema, Nasal congestion, Nasal drainage, TM bulging - LEFT, TM dull - LEFT Neck exam: Normal Neck: Positive: Supple Respiratory: Positive: Lungs clear, Normal breath sounds, No respiratory distress Cardiovascular: Positive: RRR Musculoskeletal Exam: Normal Musculoskeletal: Positive: Strength Intact, ROM Intact Neurological Exam: Normal Neurological: Positive: Alert, Muscle Tone Normal Psychological Exam: Normal Psychological: Positive: Normal Response To Family, Age Appropriate Behavior Skin Exam: Normal Ear Complaint Course/Dx - Differential Dx/Diagnosis Provider Diagnosis: Left serous otitis media Discharge - Sign-Out/Discharge Documenting (check all that apply): Patient Departure All imaging exams completed and their final reports reviewed: No Studies - Discharge Plan Condition: Stable Disposition: HOME Prescriptions: Amoxicillin PO (*) [Amoxicillin 875 MG (*)] 875 mg PO BID #20 tab Patient Education Materials: Serous Otitis Media (ED) Referrals: Miguel Tripathi MD [Primary Care Provider] - Additional Instructions: FOLLOW UP WITH YOUR DOCTOR IF NOT COMPLETELY IMPROVED. GET RECHECKED FOR ANY WORSENING OF YOUR CONDITION OR QUESTIONS OR CONCERNS. - Billing Disposition and Condition Condition: STABLE Disposition: Home
== END 2018-02-10 15:30 | disposition home or self-care (01) ==
LOC: UCEAST 14:55
DX: H65.92 Unspecified nonsuppurative otitis media, left ear (principal); Z88.1 Allergy status to other antibiotic agents; Z88.6 Allergy status to analgesic agent; Z88.5 Allergy status to narcotic agent
CPT/HCPCS: 99212; G0463

== ENCOUNTER → 2018-05-06 09:20 | Day surgery (SDC) | payer OTHER ==
[~2018-05-06 09:20] MED LIST: Acetaminophen TAB* 325 MG PO PRN; Buffered Lidocaine 1% SYRIN* 1 ML/SYRINGE INTRADERM ONE; Bupivacaine 0.5%* 50 ML VIAL ONE; CLINDAMYCIN IV ONE; Clindamycin 600 MG/D5W BAG(*) 600 MG/50 ML BAG IV ONE; D5W IV ONE; Glycopyrrolate IV* 0.2 MG/ML 1 ML VIAL ONE; KETAMINE HCL* 50 MG/ML 10 ML VIAL ONE; Ketorolac INJ* 30 MG/ML 1 ML VIAL IV PRN; Ketorolac INJ* 30 MG/ML 1 ML VIAL ONE; Lactated Ringers 1000 ML Bag* 1,000 ML IV SCH; Lidocaine 1% INJ* 10 MG/ML 30 ML SDV ONE; Lidocaine 2% PF * 5 ML VIAL ONE; Midazolam* 1 MG/ML 2 ML VIAL (2 MG) ONE; Naloxone* 0.4 MG/ML 1 ML VIAL IV PRN; Neostigmine Methylsulfate* 1 MG/ML 10 ML VIAL (1 mg/ml) ONE; Ondansetron INJ* 2 MG/ML VIAL IV PRN; Ondansetron INJ* 2 MG/ML VIAL ONE; Propofol* 10 MG/ML 20 ML BTL ONE; fentaNYL* 50 MCG/ML 2 ML VIAL (100 MCG VIAL) ONE
[2018-05-06] MEDS: fentaNYL* 50 MCG/ML 2 ML VIAL (100 MCG VIAL) IV PRN ×3 (11:15→11:39)
--- NOTE | 2018-05-06 12:30 | OP ---
DATE OF OPERATION: 05/06/18 - [facility] DATE OF : [birth year] SURGEON: Patrick Bernabe MD LAMINATION OPERATOR: ANABELLA Macedo PRE-OP DIAGNOSIS: Ventral hernia. POST-OP DIAGNOSIS: Ventral hernia. OPERATIVE PROCEDURE: Repair of a ventral hernia with a mesh. INDICATIONS FOR PROCEDURE: Ventral hernia, symptomatic risks included but not limited to bleeding, infection, injury to intraabdominal contents including of the bowel, recurrence of the hernia/others were explained to the patient who seemed to understand and agreed to the procedure and all questions were answered. DESCRIPTION OF PROCEDURE: The patient was taken to the operating room, placed supine. Preoperative antibiotics were given. After the induction of sedation by the anesthesiologist with monitored anesthesia, MAC anesthesia, the abdomen was prepped and draped in sterile fashion. A time-out was performed, correct patient, correct procedure. The skin was anesthetized with 0.5% Marcaine plain over the hernia which was just above the umbilicus and below her supraumbilical piercing sites. Incision was made directly through the piercing site and carried down to the deep subcutaneous tissue. Small hernia sac was identified, opened, excised, and a small approximately 1 cm defect was identified. A finger was placed in the abdomen and the anterior abdominal wall was swept and found to be free of adhesions. The Ventralex patch was then placed through the incision, pulled up against the anterior abdominal wall, and sutured in place with interrupted 0 Vicryl suture. EBL minimal. Hemostasis was intact. Deep layer was closed with 4-0 Vicryl. The skin was closed with 3-0 Monocryl reapproximating the area where her piercing was. Very small amount of skin was excised sharply in the entry and exit site of the piercing. Glue was applied to the skin after closure with Monocryl. She tolerated the procedure well. She was taken to the Recovery in stable condition. [id number]/[facility] #: [id number] [facility]
[2018-05-06 12:55] VITALS: BP 104/60
== END | disposition home or self-care (01) ==
LOC: OR 09:20
PROVIDERS: ATTEND Surgery
DX: K43.9 Ventral hernia without obstruction or gangrene (principal); Z87.442 Personal history of urinary calculi
CPT/HCPCS: 81025; C1781; J1885; J2250; J2405; J2704; J2710; J3010

== ENCOUNTER 2018-09-07 11:09 | Emergency (ER) | payer OTHER ==
[2018-09-07] MEDS ORDERED: NS 0.9% 1000 ML** 1,000 ML IV ONE (11:35)
[2018-09-07] MEDS ORDERED: Metoclopramide IV* 5 MG/ML 2 ML VIAL IV ONE (11:35)
[2018-09-07 14:00] VITALS: BP 125/60
--- NOTE | 2018-09-07 14:56 | ED ---
- HPI Summary HPI Summary: Patient is a 23-year-old female presenting to the ED from [employer] with request for fluid repletion. Patient states she has been nauseous and vomiting for several days without relief. She is currently 7 weeks 4 days . She states this is similar to her first with nausea and vomiting. She does have promethazine at home, however continues to have emesis and has been unable to keep this down. She denies any other symptoms. She states she has a dull ache in her abdomen diffusely while having emesis, however denies pain otherwise. - History of Current Complaint Chief Complaint: EDNauseaVomitDiarrh Stated Complaint: 8 WKS PREG ABD PAIN VOMITING PER PT Time Seen by Provider: 09/07/18 11:13 Hx Obtained From: Patient Onset/Duration: Started Hours Ago Timing: Constant Severity: Moderate Current Severity: Moderate Pain Intensity: 0 Character: None Associated Signs and Symptoms: Positive: Negative - Assessment Hx Now: No Hx : 1 SAB: 0 IEA: 0 Hx Hysterectomy: No - Additional Pertinent History Maternal Blood Type and Rh: A Positive - Allergies/Home Medications Allergies/Adverse Reactions: Allergies Allergy/AdvReac Type Severity Reaction Status Date / Time cefprozil Allergy Rash Verified 09/07/18 11:16 cephalexin Allergy Unknown Verified 09/07/18 11:16 Reaction Details acetaminophen [From Percocet] AdvReac Nausea And Verified 09/07/18 11:16 Vomiting oxycodone [From Percocet] AdvReac Nausea And Verified 09/07/18 11:16 Vomiting PMH/Surg Hx/FS Hx/Imm Hx Previously Healthy: Yes Endocrine/Hematology History: Denies: Hx Diabetes, Hx Thyroid Disease Cardiovascular History: Denies: Hx Hypertension, Hx Peripheral Vascular Disease Respiratory History: Reports: Hx Asthma - as a child, no inhalers at present Denies: Hx Chronic Obstructive Pulmonary Disease (COPD) GI History: Reports: Hx Irritable Bowel - no issues for past year Denies: Hx Ulcer, Other GI Disorders History: Reports: Hx Kidney Stones - passed Musculoskeletal History: Reports: Other Musculoskeletal History - ruddy knee pain Denies: Hx Arthritis, Hx Rheumatoid Arthritis, Hx Osteoporosis Sensory History: Reports: Hx Contacts or Glasses - glasses Denies: Hx Cataracts, Hx Glaucoma, Hx Hearing Aid Opthamlomology History: Reports: Hx Contacts or Glasses - glasses Denies: Hx Cataracts, Hx Glaucoma Neurological History: Denies: Hx Headaches, Hx Seizures, Hx Transient Ischemic Attacks (TIA), Other Neuro Impairments/Disorders Psychiatric History: Reports: Hx Anxiety - no meds, Hx Depression - no meds - Surgical History Surgery Procedure, Year, and Place: Tonsilectomy middle school age. [place] teeth removal 2009 Hx Anesthesia Reactions: No - Immunization History Hx Pertussis Vaccination: No Immunizations Up to Date: Yes Infectious Disease History: No Infectious Disease History: Denies: Hx Clostridium Difficile, Hx Hepatitis, Hx Human Immunodeficiency Virus (HIV), Hx of Known/Suspected MRSA, Hx Shingles, Hx Tuberculosis, Hx Known/ Suspected VRE, Traveled Outside the [place] in Last 30 Days - Family History Known Family History: Positive: Unknown - Patient is adopted., Hypertension - Social History Occupation: Unemployed Lives: With Family Alcohol Use: None Alcohol Amount: none since Hx Substance Use: Yes Substance Use Type: Reports: Marijuana Substance Use Comment - Amount & Last Used: daily Hx Tobacco Use: No Smoking Status (MU): Never Smoked Tobacco Review of Systems Negative: Fever, Chills, Fatigue, Skin Diaphoresis Negative: Palpitations, Chest Pain Negative: Shortness Of Breath, Cough Positive: Vomiting, Nausea Genitourinary: Negative Positive: no symptoms reported, see HPI Negative: Arthralgia, Myalgia Skin: Negative All Other Systems Reviewed And Are Negative: Yes Physical Exam - Physical Exam Triage Information Reviewed: Yes Vital Signs Reviewed: Yes Appearance: Positive: Well-Appearing, Well-Nourished Skin: Positive: Warm, Skin Color Reflects Adequate Perfusion Head/Face: Positive: Normal Head/Face Inspection Eyes: Positive: EOMI, Conjunctiva Clear Neck: Positive: Supple, No Lymphadenopathy Respiratory/Lung Sounds: Positive: Clear to Auscultation, Breath Sounds Present Cardiovascular: Positive: RRR, Pulses are Symmetrical in both Upper and Lower Extremities Musculoskeletal: Positive: Normal, Strength/ROM Intact Neurological: Positive: Speech Normal Psychiatric: Positive: Affect/Mood Appropriate AVPU Assessment: Alert Diagnostics - Vital Signs Vital Signs Temp Pulse Resp BP Pulse Ox 09/07/18 14:00 99.4 F 84 14 125/60 99 09/07/18 13:07 80 94 09/07/18 13:04 105/62 09/07/18 12:51 67 97/49 99 09/07/18 12:22 69 107/57 100 09/07/18 12:00 76 98 09/07/18 11:52 85 14 133/76 94 09/07/18 11:48 73 100 09/07/18 11:13 97.5 F 67 17 115/67 96 - Laboratory Lab Statement: Any lab studies that have been ordered have been reviewed, and results considered in the medical decision making process. Course/Dx - Course Course Of Treatment: On physical examination, patient appears well, nondiaphoretic with no emesis. She states she is here for request of fluid repletion. Patient does state she has nausea at this time. She is given 2 L fluids and Reglan. On reexamination, patient states she is feeling improved. On physical examination, patient has no pain to the abdomen on palpation. She will be discharged with nausea and vomiting in . - Diagnoses Provider Diagnoses: Nausea & vomiting Discharge - Sign-Out/Discharge Documenting (check all that apply): Patient Departure Patient Received Moderate/Deep Sedation with Procedure: No - Discharge Plan Condition: Stable Disposition: HOME Prescriptions: Ondansetron ODT TAB* [Zofran 4 MG Odt TAB*] 4 mg PO Q6H PRN #12 tab.odt MDD 4 PRN Reason: Nausea Referrals: Miguel Tripathi MD [Primary Care Provider] - Additional Instructions: Drink plenty of fluids Zofran under the tongue as needed for nausea - Billing Disposition and Condition Condition: STABLE Disposition: Home
== END 2018-09-07 14:00 | disposition home or self-care (01) ==
LOC: ED 11:09
DX: O21.0 Mild hyperemesis gravidarum (principal); Z3A.01 Less than 8 weeks gestation of pregnancy; Z88.1 Allergy status to other antibiotic agents; Z88.5 Allergy status to narcotic agent; Z88.8 Allergy status to other drugs, medicaments and biological substances
CPT/HCPCS: 96361; 96374; 99283; J2765

== ENCOUNTER 2019-02-17 13:21 | Emergency (ER) | payer OTHER ==
--- NOTE | 2019-02-17 13:30 | UC ---
Knee Pain HPI - HPI Summary HPI Summary: 23 yo female presents with LEFT knee injury. She tells me that 2 days ago she was carrying her son and tripped and landed on her left knee and left lower leg. She had severe immediate pain in her left knee with superficial abrasions. She has rested, iced, and elevated the knee since that time, but is still having significant pain with weight bearing and ambulation. States knee is swollen still. She is currently 31 weeks . No vaginal bleeding. Has been taking tylenol OTC with little relief. tetanus is UTD with her current - History of Current Complaint Stated Complaint: KNEE PAIN Time Seen by Provider: 02/17/19 13:30 Hx Obtained From: Patient Hx Last Menstrual Period: before baby - 5 mos old Onset/Duration: Sudden Onset Severity Initially: Moderate Severity Currently: Moderate Pain Intensity: 5 Pain Scale Used: 0-10 Numeric - Allergies/Home Medications Allergies/Adverse Reactions: Allergies Allergy/AdvReac Type Severity Reaction Status Date / Time cefprozil Allergy Rash Verified 12/15/18 01:09 EST cephalexin Allergy Unknown Verified 12/15/18 01:09 EST Reaction Details acetaminophen [From Percocet] AdvReac Nausea And Verified 12/15/18 01:09 EST Vomiting oxycodone [From Percocet] AdvReac Nausea And Verified 12/15/18 01:09 EST Vomiting PMH/Surg Hx/FS Hx/Imm Hx - Additional Past Medical History Additional PMH: ADD - Surgical History Surgical History: Yes Surgery Procedure, Year, and Place: Tonsilectomy middle school age. [place] teeth removal 2009 - Family History Known Family History: Positive: Unknown - Patient is adopted. Family History: patient is adopted - Social History Lives: With Family Alcohol Use: None Alcohol Amount: none since Substance Use Type: Marijuana Substance Use Comment - Amount & Last Used: daily Smoking Status (MU): Never Smoked Tobacco - Immunization History Most Recent Influenza Vaccination: fall 2016 Most Recent Tetanus Shot: UTD Most Recent Pneumonia Vaccination: unsure Review of Systems All Other Systems Reviewed And Are Negative: No Constitutional: Positive: Negative Skin: Positive: Negative Respiratory: Positive: Negative Cardiovascular: Positive: Negative Musculoskeletal: Positive: Other: - Knee pain Neurological: Positive: Negative Psychological: Positive: Negative Physical Exam - Summary Physical Exam Summary: GENERAL: NAD. WDWN. No pain distress. SKIN: Superficial abrasion with scabbing overlying patella 1.0cm. CHEST: No accessory muscle use. Breathing comfortably and in no distress. CV: Pulses intact popliteal, PT, and DP. Cap refill <2seconds MSK: LEFT KNEE: Point tenderness on central patella. FROM, but pain with flexion >90deg and with full extension. Moderate edema and crepitus about patella. Strength 5/5. Negative Mikel, A/P drawer, Moraima, and varus/valgus stress. NEURO: Alert. Sensations intact and symmetric B/L LEs PSYCH: Age appropriate behavior. Triage Information Reviewed: Yes Vital Signs: Vital Signs: Temp Pulse Resp BP Pulse Ox 98 F 88 16 102/55 100 02/17/19 13:30 02/17/19 13:30 02/17/19 13:30 02/17/19 13:30 02/17/19 13:30 Vital Signs Reviewed: Yes Diagnostics - Radiology Knee XR Radiology Interpretation Completed By: Radiologist Summary of Radiographic Findings: IMPRESSION: NO ACUTE OSSEOUS INJURY. IF SYMPTOMS PERSIST, RECOMMEND REPEAT IMAGING. Knee Pain Course/Dx - Course Course Of Treatment: Given continued pain and edema with point tenderness on patella - discussed obtaining XR today. Low risk to her and pelvic/abdominal area will be covered with lead. Pt agreed to proceed with XR. XR as above. RICE and will have her f/u with Orthopedics if symptoms do not improve. - Differential Dx/Diagnosis Provider Diagnosis: Pain and swelling of left knee Discharge ED - Sign-Out/Discharge Documenting (check all that apply): Patient Departure All imaging exams completed and their final reports reviewed: Yes - Discharge Plan Condition: Stable Disposition: HOME Patient Education Materials: Swollen Knee Joint (ED), Knee Pain (ED) Referrals: Miguel Tripathi MD [Primary Care Provider] - Shelbi Thakkar MD [Medical Doctor] - 1 Week Additional Instructions: If you develop a fever, shortness of breath, chest pain, new or worsening symptoms - please call your PCP or go to the ED immediately. The X-ray of your knee was normal today. Given your continued pain and swelling - I recommend that you call Orthopedics at the number below to schedule an appointment for a recheck in 1 week if you have not improved Continue to rest, ice, and elevate your knee to reduce pain and swelling - Billing Disposition and Condition Condition: STABLE Disposition: Home - Attestation Statements Provider Attestation: This patient was not seen by me. I was available for consult. Chart reviewed. SUSAN
[2019-02-17 13:33] VITALS: BP 102/55
== END 2019-02-17 14:16 | disposition home or self-care (01) ==
LOC: UCEAST 13:21
DX: O99.89 Other specified diseases and conditions complicating pregnancy, childbirth and the puerperium (principal); O9A.213 Injury, poisoning and certain other consequences of external causes complicating pregnancy, third trimester; M25.562 Pain in left knee; M25.462 Effusion, left knee; S80.212A Abrasion, left knee, initial encounter; Z3A.31 31 weeks gestation of pregnancy; W01.0XXA Fall on same level from slipping, tripping and stumbling without subsequent striking against object, initial encounter; Y92.9 Unspecified place or not applicable; Z88.1 Allergy status to other antibiotic agents; Z88.6 Allergy status to analgesic agent; Z88.5 Allergy status to narcotic agent
CPT/HCPCS: 99211; G0463

== ENCOUNTER 2019-04-27 23:57 | Inpatient (IN) | payer OTHER ==
[2019-04-28] MEDS ORDERED: Lactated Ringers 1000 ML Bag* 1,000 ML IV ONE ×2 (00:14→01:32)
[2019-04-28] MEDS ORDERED: Buffered Lidocaine 1% SYRIN* 1 ML/SYRINGE INTRADERM ONE (00:14)
[2019-04-28] MEDS ORDERED: Ondansetron ODT TAB* 4 MG SL PRN (00:17)
--- NOTE | 2019-04-28 00:24 | HP ---
General Information - Reason for Visit Contractions - General Information Maternal Age: 23 Grav: 2 Para: 1 SAB: 0 IEA: 0 Estimated Due Date: 04/21/19 Determined By: LMP Gestational Age in Weeks/Days: 40 07/19 Maternal Blood Type and Rh: A Positive - Results this Serology/RPR Result: Non-Reactive Rubella Result: Immune HBsAg Result: Negative HIV Result: Negative GBS Culture Result: Negative Past Medical History Delivery History: Hx Uncomplicated Vaginal Delivery Pertinent Past Medical History: See Records Past Medical History Comment: Depression Kidney Stones - 2016 PCOS Asthma - as a child Pertinent Past Surgical History: See Records Past Surgical History Comment: Umbilical hernia repair - 07/2018 [place] tooth extraction Tonsillectomy Pertinent Family History: Non-Contributory Family History Comment: Adopted, family hx unknown - Antepartal Records Antepartal Records: Reviewed, Complicated by: - mild anemia, +THC Review of Systems Constitutional: Uncomfortable CV Complaint: No Respiratory: Shortness of Breath: No Gastrointestinal: Nausea, Vomiting Genitourinary: No Dysuria, No Bleeding, No Leaking Fluid Musculoskeletal: Contractions Neurological: No Headache, No Visual Changes Movement: Normal Exam Allergies/Adverse Reactions: Allergies cefprozil Allergy (Verified 12/15/18 01:09 EST) Rash cephalexin Allergy (Verified 12/15/18 01:09 EST) Unknown Reaction Details allergy noted on dr. hinton's h&p acetaminophen [From Percocet] Adverse Reaction (Verified 12/15/18 01:09 EST) Nausea And Vomiting oxycodone [From Percocet] Adverse Reaction (Verified 12/15/18 01:09 EST) Nausea And Vomiting B/P: 134/81, P: 85, R: 20 - Measurements Height: 5 ft 6.5 in Weight: 165 lb Body Mass Index (BMI): 26.2 Pre- Weight: 125 lb - Exam Breast: Breast Exam Deferred CVA: No CVA Tenderness Extremities: No Edema Heart: Normal Rhythm/Heart Sounds HEENT: No Significant Findings Lungs: Clear Bilaterally Reflexes: DTR 2+ Thyroid: No Thyromegaly - Abdominal Exam Abdomen Exam: Non-Tender, Fundal Height Consistent with Dates - Ultrasound/Biophysical Profile Ultrasound Status: Not Done Targeted Exam Findings See L&D Outpatient Visit Provider Note for Findings: N/A Estimated Weight: 7.5 lb by baltazar's Cervical Exam: 1cm, 2cm Effacement: 70% Station: -1 Presenting Part: Vertex Membrane Status: Intact Bleeding/Discharge: None EFM Findings - External Monitor Findings Baseline Heart Rate: 130 External Monitor Findings: Accelerations Present, No Pattern of Variable or Late Decelerations, Variability Moderate, Baseline Stable Contractions: Regular, Moderate, 45-90 Seconds Contraction Frequency: 2-5 min Assessment/Plan - Assessment A: IUP at 40 6/7 weeks No evidence of metabolic acidemia GBS negative P: Admit to inpatient Allyson very uncomfortable and vomiting, will give zofran for nausea. Requesting epidural, will alert anesthesia once labs back and out of O.R. Reassess PRN Anticipate SVB - Plan Plan: Admit - Anticipate Vaginal Delivery - Date/Time of Admission Date of Admission: 04/28/19 Time of Admission: 12:15
[2019-04-28] MEDS ORDERED: Ondansetron INJ* 2 MG/ML VIAL IV PRN (00:25)
[2019-04-28 00:40] LABS: ABS Eosinophils 0.1 10^3/ul (0-0.6); ABS Lymphocytes 1.9 10^3/ul (1.0-4.8); ABS Monocytes 1.2 10^3/ul (0-0.8); ABS Neutrophils 8.6 10^3/ul (1.5-7.7); Eosinophil % 0.7 %; Hematocrit 35 % (35-47); Hemoglobin 11.9 g/dL (12.0-16.0); Lymphocyte % 16.1 %; Mean Corpuscular HGB Conc 34 g/dL (31-36); Mean Corpuscular Hemoglobin 31 pg (27-31); Mean Corpuscular Volume 91 fL (80-97); Mean Platelet Volume 9.2 fL (7.4-10.4); Platelet Count 177 10^3/uL (150-450); Red Blood Count 3.86 10^6 /uL (3.70-4.87); Red Cell Distribution Width 16 % (10-15); White Blood Count 11.9 10^3/uL (3.5-10.8)
[2019-04-28] MEDS ORDERED: OBEPIDURAL* 250 ML EPIDURAL ONE (00:57)
[2019-04-28] MEDS ORDERED: Lactated Ringers 1000 ML Bag* 1,000 ML IV SCH ×2 (01:00→02:00)
[2019-04-28] MEDS ORDERED: OBEPIDURAL* 250 ML EPIDURAL SCH (02:00)
[2019-04-28 02:34] LABS: Urine Benzodiazepine Screen None Detected (None Detect); Urine Opiates Screen None Detected (None Detect)
--- NOTE | 2019-04-28 06:15 | PN ---
Progress Note - Progress Note Date of Service: 04/28/19 Note: S: Feeling good relief s/p CEI placement, has been sleeping soundly. O: B/P: 107/70, P: 82, R: 18, T: 98.2 FHR: baseline 125, moderate variability, +accelerations, no decelerations UCs: 2-4 min, moderate to palpation VE: 7cm/90/-1, AROM to clear fluid A: IUP at 40 6/7 weeks Category I FHR, no evidence of metabolic acidemia Active labor/transition P: Await urge to push Maternal temperature q2hr Reassess PRN Anticipate SVB
[2019-04-28] MEDS ORDERED: Oxytocin in LR* 20 UNITS/1,000 ML BAG IVPB ONE (07:28)
--- NOTE | 2019-04-28 07:46 | PN ---
Progress Note - Progress Note Date of Service: 04/28/19 Note: Quick note: called to room as Allyson reports urge to push. Trial of pushing x 20 min; Allyson having difficulty relaxing rectal muscles for effective push. Category I FHR, will labor down and await stronger urge
[2019-04-28] MEDS ORDERED: Witch Hazel PAD* JAR TOPICAL PRN (10:58)
[2019-04-28] MEDS ORDERED: Glycerin ADULT SUPP PR PRN (10:58)
[2019-04-28] MEDS ORDERED: Dibucaine 1% 28.35 GM TUBE PR PRN (10:58)
[2019-04-28] MEDS ORDERED: Oxytocin in LR* 20 UNITS/1,000 ML BAG IVPB SCH (11:00)
[2019-04-28] MEDS ORDERED: Lidocaine 1% INJ* 10 MG/ML 30 ML SDV ONE (11:43)
[2019-04-28] MEDS: Docusate CAP* 100 MG PO SCH ×2 (12:10→21:00)
[2019-04-28] MEDS: Ibuprofen TAB* 600 MG PO PRN ×2 (12:11→18:41)
[2019-04-28] MEDS ORDERED: fentaNYL* 50 MCG/ML 2 ML VIAL (100 MCG VIAL) IV SLOW PU ONE (12:40)
--- NOTE | 2019-04-28 13:46 | PROCNOTE ---
[facility] OB: Delivery Note - Delivery A Date of : 04/28/19 Time of : 10:28 [place] Sex: Female - "Mireille" [place] Weight at : 9 lb 6 oz Score 1 Minute: 9 Score 5 Minutes: 9 Gestational Age in Weeks and Days at Delivery: 40 Weeks and 6 Days Delivery Method: Spontaneous Vaginal Labor: Spontaneous Did Patient attempt ?: N/A, No Previous Amniotic Fluid: Clear Estimated Blood Loss: 600 Anesthesia/Analgesia: CEI for Labor Delivered By: Nancy Guidry - Nursery Level of Nursery: Regular/Bedside - Perineum Perineal Injury: 1st Degree Perineal Injury Comment: Repaired with 3-0 Rapide Perineal Repair: By Delivering Practioner - Events Delivery Events of Note: Pitocin Only After Delivery, Post- Bleeding - Meds Given Delivery Events of Note Comment: PPH of 600 ml, followed w/pit, observe closely - Additional Delivery Notes Additional Delivery Notes: Admitted in early labor, received CEI for labor pain management with good effect. Progression to complete with slight pressure/urge to push. Length of active labor 11'34". Pushed 1 hr 17 min. Baby born direct OA, shoulders following with Berenice and strong maternal efforts. To maternal abdomen with spontaneous cry and HR >110. Cord doubly clamped and cut by FOB once pulsations ceased. Brisk bleeding noted prior to delivery of placenta with gentle cord traction. Fundus firm with massage and pitocin infusing. Shallow first degree perineal laceration repaired with minimal stitches as not hemostatic. Baby at breast to initiate . Mother and baby stable.
[2019-04-29] MEDS: Ibuprofen TAB* 600 MG PO PRN (02:36)
[2019-04-29 05:57] LABS: ABS Eosinophils 0.1 10^3/ul (0-0.6); ABS Lymphocytes 1.7 10^3/ul (1.0-4.8); ABS Monocytes 1.1 10^3/ul (0-0.8); ABS Neutrophils 9.2 10^3/ul (1.5-7.7); Eosinophil % 0.5 %; Hematocrit 25 % (35-47); Hemoglobin 8.5 g/dL (12.0-16.0); Mean Corpuscular HGB Conc 34 g/dL (31-36); Mean Corpuscular Hemoglobin 32 pg (27-31); Mean Corpuscular Volume 92 fL (80-97); Mean Platelet Volume 9.8 fL (7.4-10.4); Platelet Count 139 10^3/uL (150-450); Red Blood Count 2.69 10^6 /uL (3.70-4.87); Red Cell Distribution Width 16 % (10-15); White Blood Count 12.1 10^3/uL (3.5-10.8)
[2019-04-29] MEDS ORDERED: Ferrous Gluconate TAB* 324 MG TAB PO SCH (09:00)
[2019-04-29] MEDS ORDERED: Influenza VAC *QUAD* 2019-20* 0.5 ML SYRINGE IM ONE (09:00)
[2019-04-29] MEDS: Docusate CAP* 100 MG PO SCH (09:27)
[2019-04-29 09:49] VITALS: BP 126/75
== END 2019-04-29 14:17 | disposition home or self-care (01) | DRG 560 ==
LOC: MCHOBOUT 23:57 → MCHOB 04-28 00:21
PROVIDERS: ADMIT Midwife; ATTEND Midwife
PROC: 10E0XZZ Delivery of Products of Conception, External Approach (ICD-10-PCS; principal; 2019-04-28)
PROC: 10907ZC Drainage of Amniotic Fluid, Therapeutic from Products of Conception, Via Natural or Artificial Opening (ICD-10-PCS; 2019-04-28)
PROC: 0HQ9XZZ Repair Perineum Skin, External Approach (ICD-10-PCS; 2019-04-28)
DX: O48.0 Post-term pregnancy (principal); O72.1 Other immediate postpartum hemorrhage; Z37.0 Single live birth; Z3A.40 40 weeks gestation of pregnancy; O70.0 First degree perineal laceration during delivery; O99.344 Other mental disorders complicating childbirth; F32.9 Major depressive disorder, single episode, unspecified; O99.02 Anemia complicating childbirth; D64.9 Anemia, unspecified
CPT/HCPCS: 36415; 80307; 85025; 86850; 86900; 86901; 90686; A9270-GY; G0480; J2405